=== PATIENT | female | born 1985 | race African-American/Black ===

== ENCOUNTER 2022-04-08 18:34 | Inpatient (IN) ==
[2022-04-08] MEDS ORDERED: OXYTOCIN 30 UNITS/500 ML BAG IV PRN ×3 (19:10→19:14)
--- NOTE | 2022-04-08 19:19 | History & Physical Report ---
Date of Service April 08, 2022 Assessment & Plan (1) 40 weeks gestation of : Plan: Admit, routine labs, epidural with patient request Start oxytocin for augmentation Anticipate spontaneous vaginal delivery (2) Meconium in amniotic fluid: Plan: Will update pediatrics (3) AMA (advanced maternal age) primigravida 35+: (4) Antepartum anemia complicating in third trimester: Plan: Admission CBC pending History of Present Illness Chief Complaint: ROM Primary Care Provider: NO PCP Patient is a 36-year-old G1, P0 at 40 weeks and 1 day dated by last menstrual period consistent with 13-week ultrasound who presents to labor and delivery for leaking of fluid approximately 6:30 PM along with irregular contractions. Notes she may have some bleeding with her spontaneous rupture of membranes. Notes good movement. Denies headache, blurry vision, right upper quadrant epigastric pain. Otherwise feeling well Complications this include advanced maternal age and antepartum anemia. Allergies Allergy/AdvReac Type Severity Reaction Status Date / Time No Known Allergies Allergy Unverified 02/20/22 14:15 Home Medications Medication Instructions Recorded Confirmed Type docusate sodium 100 mg capsule 100 mg PO DAILY 02/20/22 02/20/22 History iron,carbonyl 65 mg-vitamin C 125 1 tab PO DAILY 02/20/22 02/20/22 History mg tablet,delayed release (Vitron-C) vit no.95-ferrous 1 tab PO DAILY 02/20/22 02/20/22 History fumarate 28 mg-folic acid 800 mcg tablet () Patient History Medical History Third trimester Social History Smoking Status: Never smoker Feels Safe at Home: Yes OB History [employer] History See prenate Review of Systems All systems reviewed & are unremarkable except as noted in HPI & below Physical Exam Constitutional: WD/WN, vitals as above Respiratory: normal respiratory effort, lungs clear to auscultation Cardiovascular: RRR, no murmur, no edema Gastrointestinal (Abdomen): normal bowel sounds, soft, nontender, no hepatosplenomegaly Genitourinary: no vaginal lesions, no adnexal mass normal external appearance Sterile speculum exam: Noted meconium stained fluid Cervical exam: /-3, sutures fell Results & Data ([facility]) Vital Signs (Past 12 Hours) Vital Signs Temp Pulse Resp BP 04/08/22 18:39 36.9 C 82 20 129/75 Monitoring External Monitor heart tracing: Baseline 1 35-1 40, moderate variability, positive accelerations, no decelerations, category 1 tracing Tocodynamometer Irregular contractions between every 5 to 8 minutes
[2022-04-08] MEDS: LACTATED RINGER'S 1,000 ML IV PRN (20:13)
[2022-04-08 20:43] LABS: Hematocrit (blood only) 35.1 % (37-47); Hemoglobin 11.5 g/dL (12.0-16.0); Mean Corpuscular Volume 91.6 fL (80-100); Mean Platelet Volume 10.5 fL (7.4-10.4); Platelet Count 244 K/uL (130-400); RDW Coefficient of Variation 13.5 % (11.5-14.5); RDW Standard Deviation 45.2 fL (36.4-46.3); Red Blood Count 3.83 M/uL (4.2-5.4); White Blood Count 6.33 K/uL (4.8-10.8)
[2022-04-08 21:04] LABS: Mean Corpuscular Hgb Conc 32.8 g/dL (32-36)
[2022-04-08] MEDS ORDERED: ePHEDrine sulfate 50 MG/ML AMP ONE (21:31)
[2022-04-08] MEDS ORDERED: fentaNYL 2MCG/ML ROPIVACAINE 1.25MG/ML 100 ML BAG EPI ONE (21:32)
[2022-04-08] MEDS ORDERED: BUPIVACAINE 0.25% 30 ML VIAL ONE (21:32)
[2022-04-08] MEDS ORDERED: fentaNYL citrate 100 MCG/2 ML VIAL ONE (21:32)
[2022-04-08] MEDS ORDERED: SODIUM CHLORIDE 0.9% INJ 10 ML VIAL ONE (21:32)
--- NOTE | 2022-04-08 21:39 | Anesthesiology Consultation ---
Date of Service April 08, 2022 Assessment & Plan (1) Encounter for pre-operative examination: Chart Review Chart Review: Acceptable Risk for Labor Epidural History Height/Weight Height: 5 ft 7 in Weight: 86.183 kg Allergies Allergy/AdvReac Type Severity Reaction Status Date / Time No Known Allergies Allergy Unverified 02/20/22 14:15 Medications Home Medications Medication Instructions Recorded Confirmed Last Taken docusate sodium 100 mg capsule 100 mg PO DAILY 02/20/22 02/20/22 02/20/22 iron,carbonyl 65 mg-vitamin C 125 1 tab PO DAILY 02/20/22 02/20/22 02/20/22 mg tablet,delayed release (Vitron-C) vit no.95-ferrous 1 tab PO DAILY 02/20/22 02/20/22 02/20/22 fumarate 28 mg-folic acid 800 mcg tablet () Active Medications Generic Name Dose Route Start Last Admin Trade Name Freq PRN Reason Stop Dose Admin Lactated Ringer's 1,000 mls @ 125 mls/hr 04/08/22 19:10 04/08/22 20:47 Lr IV 04/10/22 19:09 125 mls/hr .Q8H PRN Infusion L&D Protocol Protocol Past Medical History Medical History Third trimester Social History Smoking Status: Never smoker Hx Alcohol Use: No Hx Substance Use: No Physical Exam Vital Signs Last Vital Signs Temp 36.9 C 04/08/22 19:03 Pulse 82 04/08/22 18:39 Resp 20 04/08/22 19:03 BP 129/75 04/08/22 18:39 Testing Laboratory Results 04/08/22 19:23 Blood Type A Positive 04/08/22 19:26 Antibody Screen NEGATIVE 04/08/22 19:26
[2022-04-08] MEDS ORDERED: ePHEDrine sulfate 50 MG/ML AMP IV PRN (22:03)
[2022-04-08] MEDS ORDERED: NALOXONE HCL 1 MG in SODIUM CHLORIDE 0.9% 1000ML 1,000 ML IV PRN (22:03)
[2022-04-08] MEDS ORDERED: NALOXONE HCL 0.4 MG/1 ML VIAL/CARP IV PRN (22:03)
[2022-04-08] MEDS ORDERED: ONDANSETRON INJ 2 MG/ML 2 ML VIAL IV PRN (22:03)
[2022-04-09] MEDS ORDERED: NURSING L&D Epidural Breakthrough Pain Update ONE (00:25)
[2022-04-09] MEDS: LACTATED RINGER'S 1,000 ML IV PRN ×4 (00:47→13:47)
[2022-04-09] MEDS ORDERED: BUPIVACAINE 0.25% 30 ML VIAL ONE (01:53)
--- NOTE | 2022-04-09 02:31 | Communication Note ---
Date of Service: April 09, 2022 pain rated 9/10. bolused 10ml 0.5% bup in divided doses on monitor. vss. pain improved and pt asleep
[2022-04-09] MEDS: fentaNYL 2MCG/ML ROPIVACAINE 1.25MG/ML 100 ML BAG EPI PRN ×2 (04:21→10:11)
--- NOTE | 2022-04-09 06:28 | Labor Progress Brief Note ---
Date of Service April 09, 2022 Subjective Patient resting comfortably with epidural. No issues overnight Assessment & Plan (1) 40 weeks gestation of : Plan: Continue oxytocin for augmentation Anticipate spontaneous vaginal delivery (2) Meconium in amniotic fluid: Plan: Will update pediatrics (3) AMA (advanced maternal age) primigravida 35+: (4) Antepartum anemia complicating in third trimester: Plan: H/H 11.5/35.1% Admission and Anticipated Discharge Date Admission Date: April 08, 2022 Physical Exam Genitourinary: FHT: baseline 135-140, mod variability, occasional decelerations, positive accelerations, category 1 to category 2 Tocometer: Q. 1 to 3 minutes oxytocin currently running Cervix: 7.5/100/0 checked by RN Results & Data ([facility]) Vital Signs (Past 12 Hours) Vital Signs Temp Pulse Resp BP Pulse Ox 04/09/22 06:23 102 H 97 04/09/22 06:18 90 96 04/09/22 06:13 88 96 04/09/22 06:12 88 129/69 04/09/22 06:08 93 H 97 04/09/22 06:03 88 97 04/09/22 05:58 104 H 97 04/09/22 05:56 92 H 128/71 04/09/22 05:53 97 H 97 04/09/22 05:48 100 H 97 04/09/22 05:43 90 97 04/09/22 05:41 91 H 124/69 04/09/22 05:38 103 H 97 04/09/22 05:33 87 96 04/09/22 05:28 90 97 04/09/22 05:27 85 126/68 04/09/22 05:23 84 96 04/09/22 05:18 94 H 97 04/09/22 05:13 85 97 04/09/22 05:11 88 124/69 04/09/22 05:10 36.8 C 16 04/09/22 05:08 85 96 04/09/22 05:03 81 96 04/09/22 04:58 96 H 96 04/09/22 04:56 82 122/69 04/09/22 04:53 85 97 04/09/22 04:48 96 H 97 04/09/22 04:43 91 H 97 04/09/22 04:41 84 120/69 04/09/22 04:38 81 97 04/09/22 04:33 99 H 95 04/09/22 04:28 88 96 04/09/22 04:26 89 122/73 04/09/22 04:23 79 96 04/09/22 04:18 81 96 04/09/22 04:13 80 96 04/09/22 04:12 90 122/68 04/09/22 04:08 87 96 04/09/22 04:03 90 95 04/09/22 03:58 91 H 97 04/09/22 03:56 88 121/67 04/09/22 03:53 85 97 04/09/22 03:48 78 97 04/09/22 03:43 82 97 04/09/22 03:41 77 121/65 04/09/22 03:38 81 97 04/09/22 03:33 85 97 04/09/22 03:28 90 97 04/09/22 03:26 85 119/68 04/09/22 03:23 88 97 04/09/22 03:18 91 H 97 04/09/22 03:15 36.9 C 04/09/22 03:13 82 97 04/09/22 03:11 85 117/68 04/09/22 03:08 94 H 97 04/09/22 03:03 91 H 96 04/09/22 02:58 72 96 04/09/22 02:56 96 H 114/66 04/09/22 02:53 75 96 04/09/22 02:48 79 97 04/09/22 02:43 85 97 04/09/22 02:41 73 112/63 04/09/22 02:38 74 97 04/09/22 02:33 93 H 97 04/09/22 02:28 84 97 04/09/22 02:26 86 109/65 04/09/22 02:23 73 97 04/09/22 02:18 82 96 04/09/22 02:13 83 98 04/09/22 02:08 86 118/69 100 04/09/22 02:05 79 119/69 04/09/22 02:03 84 100 04/09/22 02:02 85 115/68 04/09/22 01:59 92 H 117/66 04/09/22 01:58 95 H 127/78 89 L 04/09/22 01:53 86 100 04/09/22 01:48 97 H 100 04/09/22 01:44 95 H 90 04/09/22 01:43 92 H 118/72 100 04/09/22 01:28 91 H 117/66 04/09/22 01:13 88 126/59 L 04/09/22 01:02 89 100 04/09/22 00:58 112/63 04/09/22 00:57 89 100 04/09/22 00:53 91 H 90 04/09/22 00:52 91 H 100 04/09/22 00:47 89 99 04/09/22 00:46 83 119/60 04/09/22 00:33 85 89 L 04/09/22 00:31 76 99 04/09/22 00:28 74 129/71 04/09/22 00:26 86 99 04/09/22 00:21 76 100 04/09/22 00:16 87 96 04/09/22 00:15 36.9 C 04/09/22 00:13 76 134/71 04/09/22 00:11 80 98 04/09/22 00:10 84 90 04/09/22 00:06 74 99 04/09/22 00:01 80 100 04/08/22 23:58 79 127/68 04/08/22 23:56 82 100 04/08/22 23:51 90 99 04/08/22 23:46 75 100 04/08/22 23:43 81 126/69 04/08/22 23:41 84 98 04/08/22 23:36 85 99 04/08/22 23:31 79 100 04/08/22 23:28 82 117/67 04/08/22 23:26 78 100 04/08/22 23:21 79 98 04/08/22 23:16 82 98 04/08/22 23:13 76 120/60 04/08/22 23:11 81 99 04/08/22 23:06 87 99 04/08/22 23:01 88 99 04/08/22 22:58 91 H 121/63 04/08/22 22:56 78 100 04/08/22 22:51 86 99 04/08/22 22:46 81 99 04/08/22 22:43 82 121/58 L 04/08/22 22:41 81 99 04/08/22 22:36 80 100 04/08/22 22:31 92 H 99 04/08/22 22:29 82 121/55 L 04/08/22 22:26 83 100 04/08/22 22:21 84 99 04/08/22 22:16 85 99 04/08/22 22:12 86 116/58 L 04/08/22 22:11 87 100 04/08/22 22:10 94 H 117/60 04/08/22 22:08 87 118/61 04/08/22 22:06 37.1 C 89 18 119/64 100 04/08/22 22:04 82 120/64 04/08/22 22:01 94 H 97 04/08/22 21:58 81 123/72 04/08/22 21:56 82 100 04/08/22 21:55 82 130/71 04/08/22 21:52 105 H 135/83 04/08/22 21:51 102 H 100 04/08/22 21:49 93 H 131/79 04/08/22 21:46 88 128/75 100 04/08/22 19:03 36.9 C 20 04/08/22 18:39 36.9 C 82 20 129/75
[2022-04-09] MEDS ORDERED: LIDOCAINE 2%/EPINEPHRINE 1:200,000 20 ML SDV ONE (09:55)
[2022-04-09] MEDS ORDERED: ROPIVACAINE 0.5% 5 MG/ML 30 ML VIAL ONE (09:55)
--- NOTE | 2022-04-09 12:48 | Labor Progress Brief Note ---
Date of Service April 09, 2022 Subjective Patient resting comfortably with epidural. No current complaints at this time Assessment & Plan (1) 40 weeks gestation of : Plan: Continue oxytocin for augmentation Going to start pushing with nursing staff at this time Anticipate spontaneous vaginal delivery Maternal tachycardia, no maternal fever at this time, earlier had tachycardia. If meets criteria for chorio will start antibiotics (2) Meconium in amniotic fluid: Plan: Will update pediatrics (3) AMA (advanced maternal age) primigravida 35+: (4) Antepartum anemia complicating in third trimester: Plan: H/H 11.5/35.1% Admission and Anticipated Discharge Date Admission Date: April 08, 2022 Physical Exam Physical Exam: heart tracing: Baseline 160, minimal to moderate variability, early decelerations, positive accelerations, category 2 Tocometer: Contractions every 2 minutes Pitocin at 16 Cervix: 10/100/+1 checked by RN Results & Data ([facility]) Vital Signs (Past 12 Hours) Vital Signs Temp Pulse Resp BP Pulse Ox 04/09/22 12:43 111 H 100 04/09/22 12:41 114 H 125/67 04/09/22 12:38 113 H 100 04/09/22 12:33 113 H 100 04/09/22 12:28 103 H 100 04/09/22 12:27 121 H 140/61 04/09/22 12:23 115 H 100 04/09/22 12:19 107 H 91 04/09/22 12:18 103 H 100 04/09/22 12:13 106 H 100 04/09/22 12:12 113 H 125/68 04/09/22 12:08 111 H 100 04/09/22 12:03 131 H 100 04/09/22 11:58 110 H 98 04/09/22 11:57 111 H 20 126/62 04/09/22 11:53 118 H 100 04/09/22 11:48 149 H 99 04/09/22 11:47 125 H 92 04/09/22 11:43 140 H 100 04/09/22 11:42 129 H 126/57 L 04/09/22 11:38 112 H 100 04/09/22 11:33 118 H 100 04/09/22 11:28 99 H 100 04/09/22 11:26 96 H 20 119/66 04/09/22 11:23 95 H 100 04/09/22 11:18 91 H 100 04/09/22 11:13 110 H 100 04/09/22 11:12 37.5 C 88 20 123/68 04/09/22 11:08 100 H 100 04/09/22 11:03 93 H 100 04/09/22 10:58 91 H 100 04/09/22 10:56 87 20 128/69 04/09/22 10:53 90 100 04/09/22 10:48 92 H 100 04/09/22 10:43 88 100 04/09/22 10:41 90 20 123/65 04/09/22 10:38 85 100 04/09/22 10:33 92 H 100 04/09/22 10:28 103 H 100 04/09/22 10:26 98 H 18 124/62 04/09/22 10:23 91 H 100 04/09/22 10:18 104 H 98 04/09/22 10:17 99 H 91 04/09/22 10:13 97 H 96 04/09/22 10:11 94 H 121/67 04/09/22 10:10 97 H 93 04/09/22 10:08 95 H 100 04/09/22 10:05 98 H 128/75 04/09/22 10:03 112 H 100 04/09/22 09:58 89 100 04/09/22 09:56 101 H 18 121/65 04/09/22 09:53 96 H 100 04/09/22 09:48 94 H 100 04/09/22 09:43 96 H 100 04/09/22 09:41 99 H 20 117/65 04/09/22 09:38 98 H 100 04/09/22 09:33 103 H 100 04/09/22 09:28 37.4 C 20 100 04/09/22 09:26 37.4 C 101 H 20 111/58 L 04/09/22 09:23 97 H 95 04/09/22 09:18 96 H 100 04/09/22 09:13 94 H 100 04/09/22 09:11 90 18 126/69 04/09/22 09:08 94 H 100 04/09/22 09:03 95 H 100 04/09/22 08:58 91 H 100 07/03/22 08:57 88 122/68 07/03/22 08:53 93 H 100 04/09/22 08:48 90 100 04/09/22 08:43 87 100 04/09/22 08:41 84 18 127/64 04/09/22 08:38 87 100 04/09/22 08:33 94 H 100 04/09/22 08:28 88 99 04/09/22 08:26 100 H 129/66 04/09/22 08:23 87 99 04/09/22 08:18 86 99 04/09/22 08:14 99 H 94 04/09/22 08:13 90 100 04/09/22 08:11 87 128/74 04/09/22 08:08 88 99 04/09/22 08:03 90 98 04/09/22 07:58 87 98 04/09/22 07:56 89 20 126/69 04/09/22 07:53 87 98 04/09/22 07:48 83 98 04/09/22 07:43 94 H 98 04/09/22 07:41 87 130/75 04/09/22 07:38 95 H 100 04/09/22 07:33 94 H 99 04/09/22 07:28 88 98 04/09/22 07:26 96 H 126/70 04/09/22 07:23 88 99 04/09/22 07:18 95 H 97 04/09/22 07:13 96 H 96 04/09/22 07:11 100 H 128/67 04/09/22 07:08 89 96 04/09/22 07:03 91 H 96 04/09/22 07:00 36.7 C 20 04/09/22 06:58 97 H 96 04/09/22 06:57 93 H 130/74 04/09/22 06:53 104 H 96 04/09/22 06:48 96 H 96 04/09/22 06:43 105 H 96 04/09/22 06:41 90 128/70 04/09/22 06:38 97 H 96 04/09/22 06:33 97 H 97 04/09/22 06:28 94 H 96 04/09/22 06:26 96 H 129/67 04/09/22 06:23 102 H 97 04/09/22 06:18 90 96 04/09/22 06:13 88 96 04/09/22 06:12 88 129/69 04/09/22 06:08 93 H 97 04/09/22 06:03 88 97 04/09/22 05:58 104 H 97 04/09/22 05:56 92 H 128/71 04/09/22 05:53 97 H 97 04/09/22 05:48 100 H 97 04/09/22 05:43 90 97 04/09/22 05:41 91 H 124/69 04/09/22 05:38 103 H 97 04/09/22 05:33 87 96 04/09/22 05:28 90 97 04/09/22 05:27 85 126/68 04/09/22 05:23 84 96 04/09/22 05:18 94 H 97 04/09/22 05:13 85 97 04/09/22 05:11 88 124/69 04/09/22 05:10 36.8 C 16 04/09/22 05:08 85 96 04/09/22 05:03 81 96 04/09/22 04:58 96 H 96 04/09/22 04:56 82 122/69 04/09/22 04:53 85 97 04/09/22 04:48 96 H 97 04/09/22 04:43 91 H 97 04/09/22 04:41 84 120/69 04/09/22 04:38 81 97 04/09/22 04:33 99 H 95 04/09/22 04:28 88 96 04/09/22 04:26 89 122/73 04/09/22 04:23 79 96 04/09/22 04:18 81 96 04/09/22 04:13 80 96 04/09/22 04:12 90 122/68 04/09/22 04:08 87 96 04/09/22 04:03 90 95 04/09/22 03:58 91 H 97 04/09/22 03:56 88 121/67 04/09/22 03:53 85 97 04/09/22 03:48 78 97 04/09/22 03:43 82 97 04/09/22 03:41 77 121/65 04/09/22 03:38 81 97 04/09/22 03:33 85 97 04/09/22 03:28 90 97 04/09/22 03:26 85 119/68 04/09/22 03:23 88 97 04/09/22 03:18 91 H 97 04/09/22 03:15 36.9 C 04/09/22 03:13 82 97 04/09/22 03:11 85 117/68 04/09/22 03:08 94 H 97 04/09/22 03:03 91 H 96 04/09/22 02:58 72 96 04/09/22 02:56 96 H 114/66 04/09/22 02:53 75 96 04/09/22 02:48 79 97 04/09/22 02:43 85 97 04/09/22 02:41 73 112/63 04/09/22 02:38 74 97 04/09/22 02:33 93 H 97 04/09/22 02:28 84 97 04/09/22 02:26 86 109/65 04/09/22 02:23 73 97 04/09/22 02:18 82 96 04/09/22 02:13 83 98 04/09/22 02:08 86 118/69 100 04/09/22 02:05 79 119/69 04/09/22 02:03 84 100 04/09/22 02:02 85 115/68 04/09/22 01:59 92 H 117/66 04/09/22 01:58 95 H 127/78 89 L 04/09/22 01:53 86 100 04/09/22 01:48 97 H 100 04/09/22 01:44 95 H 90 04/09/22 01:43 92 H 118/72 100 04/09/22 01:28 91 H 117/66 04/09/22 01:13 88 126/59 L 04/09/22 01:02 89 100 04/09/22 00:58 112/63 04/09/22 00:57 89 100 04/09/22 00:53 91 H 90 04/09/22 00:52 91 H 100 04/09/22 00:47 89 99
[2022-04-09] MEDS ORDERED: GENTAMICIN CONSULT ACTIVE PRN (13:53)
[2022-04-09] MEDS ORDERED: GENTAMICIN SULFATE 440 MG in DEXTROSE 5% 100 ML IV ONE (14:00)
[2022-04-09] MEDS ORDERED: AMPICILLIN 2,000 MG in SODIUM CHLOR 0.9% AD-VAN 100 ML IV ONE (14:00)
[2022-04-09] MEDS ORDERED: DIPHTHERIA/TETANUS/PERTUSSIS 0.5 ML SYR/VIAL IM ONE (15:35)
[2022-04-09] MEDS ORDERED: bisacodyL 10 MG SUPP PR PRN (15:35)
[2022-04-09] MEDS ORDERED: HYDROCORTISONE ACETATE 25 MG SUPP PR PRN (15:35)
[2022-04-09] MEDS ORDERED: OXYTOCIN 30 UNITS/500 ML BAG IV PRN (15:35)
[2022-04-09] MEDS ORDERED: ACETAMINOPHEN 325 MG TAB PO PRN (15:35)
[2022-04-09] MEDS ORDERED: BENZOCAINE 20% AER SPR 82.5 GM CAN EXT PRN (15:35)
--- NOTE | 2022-04-09 15:37 | Delivery Summary ---
Vaginal Delivery Summary Date of Service April 09, 2022 Vaginal Delivery Summary Delivery Note History synopsis: Patient is a 36-year-old G1, P0 that was admitted at 40 weeks and 1 day, with spontaneous rupture of membranes, not an active labor. Noted meconium stained fluid. She was admitted prior to an epidural before starting oxytocin for augmentation. She was started on oxytocin, made good cervical change throughout the night and was found to be complete at 1233. Noted maternal and tachycardia as well as a setting of a maternal fever and received ampicillin and gentamicin for suspected chorioamnionitis. She pushed with nursing and I was called for delivery Delivery Summary: Patient was placed in the dorsal lithotomy position. She was prepped and draped in the usual sterile fashion. Upon maternal pushing the head was delivered atraumatically followed by the anterior shoulders, posterior shoulders then the remainder of the infants body. The infants mouth and nose were bulb suction below the level of the perineum. A male infant was delivered at 1509. Weight and scores currently pending. The umbilical cord was clamped times two and cut. The was handed off to the awaiting nursing staff. Cord blood gases were obtained. The placenta delivered intact with three vessel cord. . Placenta was sent to pathology. Thirty units of Pitocin were added to the IV fluid and allowed to run freely. Uterine massage was performed until uterus was deemed firm. Upon inspection of the perineum, vagina and cervix were intact. First degree laceration was noted which was repaired with 3-0 Vicryl in the usual fashion. Noted multiple areas were none hemostatic and were closed with 2-0 Vicryl and 3-0 Vicryl in a [id number] fashion to create hemostasis. Upon re-inspection the patient was hemostatic. Uterus again massaged and found to be firm. Needle and sponge counts were correct. Patient was stable and allowed to recover in L&D room. Infant was stable and remained in room with mother in the Family Care Unit.
[2022-04-09 15:45] LABS: Base Excess Cord Arterial Bld -5.2 mEq/L (-9-1.8); CO2 Cord Arterial Blood 51 mmHg (39.1-73.5); HCO3 Cord Arterial Blood 22 mmol/L (19.7-28.5); Oxygen Sat Cord Arterial Blood < 60.0 % (<60); PO2 Cord Arterial Blood 19 mmHg (4.1-31.7); pH Cord Arterial Blood 7.25 (7.1-7.38)
[2022-04-09] MEDS: IBUPROFEN 600 MG TAB PO PRN ×2 (15:53→20:18)
--- NOTE | 2022-04-09 16:10 | Anesthesia Procedure Note ---
Date of Service April 09, 2022 Anesthesia Post Epidural Note Vital Signs Vital Signs: Temp Pulse Resp BP Pulse Ox 37.5 C 93 H 20 150/72 H 49 L 04/09/22 15:13 04/09/22 15:56 04/09/22 16:00 04/09/22 15:56 04/09/22 15:11 Pain Intensity Lower Abdomen: Pain Intensity: 7 Notes Mental Status: alert / awake / arousable and participated in evaluation Nausea / Vomiting: adequately controlled Pain: adequately controlled Airway Patency, RR, SpO2: stable & adequate BP & HR: stable & adequate Hydration State: stable & adequate Neuraxial Anesthesia: was administered and sensory block is resolving Anesthetic Complications: no major complications apparent Epidural: Removed without complications and With tip intact
[2022-04-09] MEDS: DOCUSATE SODIUM 100 MG CAP PO SCH (20:18)
[2022-04-09] MEDS: AMPICILLIN 2,000 MG in SODIUM CHLOR 0.9% AD-VAN 100 ML IV SCH (20:53)
[2022-04-10] MEDS: AMPICILLIN 2,000 MG in SODIUM CHLOR 0.9% AD-VAN 100 ML IV SCH ×4 (02:43→20:23)
[2022-04-10 07:09] LABS: Hemoglobin 9.8 g/dL (12.0-16.0); Mean Corpuscular Hemoglobin 29.5 pg (25-34); Mean Corpuscular Hgb Conc 32.7 g/dL (32-36); Mean Corpuscular Volume 90.4 fL (80-100); Mean Platelet Volume 9.9 fL (7.4-10.4); Platelet Count 215 K/uL (130-400); RDW Coefficient of Variation 13.5 % (11.5-14.5); RDW Standard Deviation 44.7 fL (36.4-46.3); Red Blood Count 3.32 M/uL (4.2-5.4)
[2022-04-10] MEDS: PRENATAL VITAMIN 1 TAB PO SCH (08:04)
[2022-04-10] MEDS: DOCUSATE SODIUM 100 MG CAP PO SCH ×2 (08:04→20:20)
[2022-04-10] MEDS: IBUPROFEN 600 MG TAB PO PRN ×3 (08:04→20:22)
[2022-04-10] MEDS: FERROUS SULFATE 325 MG TAB PO SCH (08:04)
--- NOTE | 2022-04-10 09:05 | Obstetrical Progress Note ---
Date of Service April 10, 2022 Subjective Ambulation: ambulating normally Voiding: no voiding problems Passing Gas:: Yes Diet Tolerance:: regular diet Lochia:: Small Feeding Type:: breast feeding Current Pain Level(1-10): 0 doing well Review of Systems All systems reviewed & are unremarkable except as noted in HPI & below Physical Exam Constitutional WD/WN, vitals as above Gastrointestinal (Abdomen) Inspection/Auscultation: abdomen normal to inspection abdomen soft and non-tender fundus firm below U Musculoskeletal Extremities: extremities normal to inspection no edema neg Norbert's Results & Data ([facility]) Vital Signs (Past 12 Hours) Vital Signs Temp Pulse Resp BP Pulse Ox 04/10/22 03:29 36.4 C L 66 18 101/65 04/09/22 23:05 36.7 C 82 16 106/67 96 Laboratory Results Laboratory Results - last 72 hr 04/08/22 04/08/22 04/08/22 19:23 19:26 19:32 WBC 6.33 RBC 3.83 L Hgb 11.5 L Hct 35.1 L MCV 91.6 MCH 30.0 MCHC 32.8 RDW Std Deviation 45.2 RDW Coeff of Eliezer 13.5 Plt Count 244 MPV 10.5 H Cord ABG pH Cord ABG pCO2 Cord ABG pO2 Cord ABG HCO3 Cord ABG Base Excess Cord ABG O2 Sat Blood Gas Comments SARS-CoV-2, RNA, NAAT NEGATIVE Blood Type A Positive Antibody Screen NEGATIVE 04/09/22 04/10/22 15:09 06:49 WBC 16.80 H RBC 3.32 L Hgb 9.8 L Hct 30.0 L MCV 90.4 MCH 29.5 MCHC 32.7 RDW Std Deviation 44.7 RDW Coeff of Eliezer 13.5 Plt Count 215 MPV 9.9 Cord ABG pH 7.25 Cord ABG pCO2 51 Cord ABG pO2 19 Cord ABG HCO3 22 Cord ABG Base Excess -5.2 Cord ABG O2 Sat < 60.0 Blood Gas Comments WILCOX SARS-CoV-2, RNA, NAAT Blood Type Antibody Screen
[2022-04-10] MEDS ORDERED: bisacodyL 5 MG TABEC PO SCH (20:00)
[2022-04-11 06:51] LABS: Hematocrit (blood only) 29.1 % (37-47); Hemoglobin 9.4 g/dL (12.0-16.0)
[2022-04-11] MEDS: FERROUS SULFATE 325 MG TAB PO SCH (10:32)
[2022-04-11] MEDS: DOCUSATE SODIUM 100 MG CAP PO SCH (10:32)
[2022-04-11] MEDS: PRENATAL VITAMIN 1 TAB PO SCH (10:32)
[2022-04-11] MEDS: IBUPROFEN 600 MG TAB PO PRN (10:33)
--- NOTE | 2022-04-11 10:48 | Obstetrical Progress Note ---
Date of Service April 11, 2022 Assessment & Plan (1) Normal course: PPD #2 pt doing well d/c home with instructions Subjective Ambulation: ambulating normally Voiding: no voiding problems Passing Gas:: Yes Diet Tolerance:: regular diet Lochia:: Small Feeding Type:: breast feeding Review of Systems All systems reviewed & are unremarkable except as noted in HPI & below Physical Exam Constitutional WD/WN, vitals as above well developed and well nourished Eyes PERRL, conjunctivae normal, anicteric sclerae Neck trachea midline, no thyromegaly Respiratory normal respiratory effort, lungs clear to auscultation Auscultation: no crackles, no rales and no wheezes Cardiovascular RRR, no murmur, no edema Gastrointestinal (Abdomen) normal bowel sounds, soft, nontender, no hepatosplenomegaly Uterus is below umbilicus Musculoskeletal no cyanosis or clubbing, extremities motor strength 5/5 Skin no rashes, warm and dry Neurologic patellar DTR's 2+ bilat, sensation intact Psychiatric A+Ox3, euthymic affect Genitourinary normal external appearance Results & Data ([facility]) Vital Signs (Past 12 Hours) Vital Signs Temp Pulse Resp BP Pulse Ox 04/11/22 00:30 36.8 C 81 16 103/72 99
== END 2022-04-11 16:00 | disposition home or self-care (01) | DRG 805 ==
LOC: OPB 18:34 → 4S1 18:36 → 4E2 04-09 18:15
DX: Z3A.40 40 weeks gestation of pregnancy; O48.0 Post-term pregnancy; O76 Abnormality in fetal heart rate and rhythm complicating labor and delivery; O42.92 Full-term premature rupture of membranes, unspecified as to length of time between rupture and onset of labor; O77.0 Labor and delivery complicated by meconium in amniotic fluid; O41.1230 Chorioamnionitis, third trimester, not applicable or unspecified; O99.02 Anemia complicating childbirth; Z37.0 Single live birth; O70.0 First degree perineal laceration during delivery; D64.9 Anemia, unspecified

== ENCOUNTER 2023-04-06 10:07 | Inpatient (IN) ==
[2023-04-06] MEDS ORDERED: LIDOCAINE 1% LOCAL 20 ML VIAL INFIL PRN (10:33)
[2023-04-06] MEDS ORDERED: OXYTOCIN 30 UNITS/500 ML BAG IV PRN ×3 (10:33→23:49)
--- NOTE | 2023-04-06 10:48 | History & Physical Report ---
Date of Service April 06, 2023 Assessment & Plan (1) AMA (advanced maternal age) primigravida 35+: Plan: Admit in labor (2) with 39 completed weeks gestation: Admission and Anticipated Discharge Date Admission Date: April 06, 2023 History of Present Illness Chief Complaint: spontaneous ruptured membranes at term Primary Care Provider: EFFIE PCP 37 F P1001 at 39.2 weeks admitted with leakage of fluid since last PM clear. Mild contractions noted. GBS is negative Allergies Allergy/AdvReac Type Severity Reaction Status Date / Time No Known Allergies Allergy Unverified 02/20/22 14:15 Home Medications Medication Instructions Recorded Confirmed Type docusate sodium 100 mg capsule 100 mg PO DAILY 02/20/22 04/06/23 History iron,carbonyl 65 mg-vitamin C 125 1 tab PO DAILY 02/20/22 04/06/23 History mg tablet,delayed release (Vitron-C) vit no.95-ferrous 1 tab PO DAILY 02/20/22 04/06/23 History fumarate 28 mg-folic acid 800 mcg tablet () Patient History Medical History Third trimester Surgical History History of appendectomy Social History Smoking Status: Never smoker Hx Alcohol Use: No Hx Substance Use: No Preferred Language: [place]dean Communication Ability: Effective Nursing Information Systems Coordinator Required: No Beliefs That Will Affect Care: None marital status: Current Living Situation: Spouse Other Information That Helps Us Care for You: No Feels Safe at Home: Yes Safety Concerns: Feels Safe At This Time Assistive Devices: None 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 Review of Systems All systems reviewed & are unremarkable except as noted in HPI & below Physical Exam Constitutional: WD/WN, vitals as above Eyes: PERRL, conjunctivae normal, anicteric sclerae Respiratory: normal respiratory effort, lungs clear to auscultation Cardiovascular: RRR, no murmur, no edema Musculoskeletal: Extremities: extremities normal to inspection Skin: no rashes, warm and dry Neurologic: patellar DTR's 2+ bilat, sensation intact Psychiatric: A+Ox3, euthymic affect Genitourinary: no vaginal lesions, no adnexal mass Manual OB Exam: + cervical dilation 4 cm, + cervical effacement 70%, + station high and + amniotic fluid clear OB Exam Monitor Tracing: + external FHT monitor used, + external uterine monitor used, + category I and + normal FHT variability Results & Data Vital Signs (Past 12 Hours) Vital Signs Temp Pulse Resp BP 04/06/23 10:20 36.6 C 20 04/06/23 10:16 81 130/65 Code Status & VTE Plan VTE Prophylaxis Plan VTE Prophylaxis will be ordered: No Monitoring External Monitor Cat 1
[2023-04-06] MEDS: LACTATED RINGER'S 1,000 ML IV PRN ×2 (11:44→17:44)
[2023-04-06 11:46] LABS: Hematocrit (blood only) 35.2 % (37.0-47.0); Mean Corpuscular Hemoglobin 27.2 pg (25.0-34.0); Mean Corpuscular Hgb Conc 31.3 g/dL (32.0-36.0); Mean Corpuscular Volume 87.1 fL (80.0-100.0); Mean Platelet Volume 10.1 fL (9.4-12.4); Platelet Count 227 K/uL (130-400); RDW Coefficient of Variation 19.5 % (11.5-14.5); RDW Standard Deviation 61.7 fL (36.4-46.3); Red Blood Count 4.04 M/uL (4.20-5.40); White Blood Count 4.32 K/ul (4.8-10.8)
--- NOTE | 2023-04-06 14:13 | Labor Progress Brief Note ---
Date of Service April 06, 2023 Assessment & Plan Admission and Anticipated Discharge Date Admission Date: April 06, 2023 Physical Exam Genitourinary: Manual OB Exam: + cervical dilation 5 cm, + cervical effacement 70%, + station -2 and + amniotic fluid clear OB Exam Monitor Tracing: + external FHT monitor used, + external uterine monitor used, + category I and + normal FHT variability Results & Data Vital Signs (Past 12 Hours) Vital Signs Temp Pulse Resp BP 04/06/23 10:20 36.6 C 20 04/06/23 14:00 20 04/06/23 14:00 20 04/06/23 13:11 85 04/06/23 13:11 122/71 04/06/23 13:00 20 04/06/23 13:00 20 04/06/23 12:00 18 04/06/23 12:00 18 04/06/23 12:30 18 04/06/23 12:30 37.0 C 18 04/06/23 12:30 18 04/06/23 12:30 37.0 C 18 04/06/23 12:32 91 H 04/06/23 12:32 117/72 04/06/23 11:24 20 04/06/23 11:24 20 04/06/23 10:30 16 04/06/23 10:30 16 04/06/23 11:00 18 04/06/23 11:00 18 04/06/23 10:16 81 130/65
[2023-04-06] MEDS ORDERED: fentaNYL citrate PF 100 MCG/2 ML VIAL ONE (17:30)
[2023-04-06] MEDS ORDERED: SODIUM CHLORIDE 0.9% PF INJ 10 ML VIAL ONE (17:31)
[2023-04-06] MEDS ORDERED: fentaNYL 2MCG/ML ROPIVACAINE 1.25MG/ML 100 ML BAG EPI ONE (17:31)
[2023-04-06] MEDS ORDERED: ePHEDrine sulfate 50 MG/ML AMP ONE (17:31)
[2023-04-06] MEDS ORDERED: BUPIVACAINE 0.25% PF 30 ML VIAL ONE (17:31)
[2023-04-06] MEDS ORDERED: LIDOCAINE 2%/EPINEPHRINE 1:200,000 20 ML PF ONE (17:31)
[2023-04-06] MEDS ORDERED: BUPIVACAINE 0.25% PF 30 ML VIAL EPI PRN (17:58)
[2023-04-06] MEDS ORDERED: NALBUPHINE HCL INJ 10 MG/ML AMP IV PRN (17:58)
[2023-04-06] MEDS ORDERED: SODIUM CHLORIDE 0.9% PF INJ 10 ML VIAL EPI PRN (17:58)
[2023-04-06] MEDS ORDERED: fentaNYL citrate PF 100 MCG/2 ML VIAL EPI STA (17:58)
[2023-04-06] MEDS ORDERED: LIDOCAINE 2% MPF LOCAL 5 ML VIAL EPI PRN (17:58)
[2023-04-06] MEDS ORDERED: diphenhydrAMINE 50 MG/ML VIAL IV PRN (17:58)
[2023-04-06] MEDS ORDERED: SODIUM CHLORIDE 0.9% PF INJ 10 ML VIAL EPI STA (17:58)
[2023-04-06] MEDS ORDERED: LIDOCAINE 2%/EPINEPHRINE 1:200,000 20 ML PF EPI STA (17:58)
[2023-04-06] MEDS ORDERED: BUPIVACAINE 0.25% PF 30 ML VIAL EPI STA (17:58)
[2023-04-06] MEDS ORDERED: fentaNYL 2MCG/ML ROPIVACAINE 1.25MG/ML 100 ML BAG EPI PRN (17:58)
[2023-04-06] MEDS ORDERED: ePHEDrine sulfate 50 MG/ML AMP IV PRN (17:58)
[2023-04-06] MEDS ORDERED: NALOXONE HCL 0.4 MG/1 ML VIAL/CARP IV PRN (17:58)
[2023-04-06] MEDS ORDERED: NALOXONE HCL 1 MG in SODIUM CHLORIDE 0.9% 1000ML 1,000 ML IV PRN (17:58)
[2023-04-06] MEDS ORDERED: fentaNYL citrate PF 100 MCG/2 ML VIAL EPI PRN (17:58)
[2023-04-06] MEDS ORDERED: ROPIVACAINE 0.5% PF 5 MG/ML 20 ML VIAL EPI PRN (17:58)
--- NOTE | 2023-04-06 18:00 | Anesthesiology Consultation ---
Date of Service April 06, 2023 Assessment & Plan (1) Encounter for pre-operative examination: Chart Review Chart Review: Patient NOT seen in Pre Admission Testing and Acceptable Risk for Labor Epidural Consults Requested none History Height/Weight Height: 5 ft 7 in Weight: 85.275 kg Allergies Allergy/AdvReac Type Severity Reaction Status Date / Time No Known Allergies Allergy Unverified 02/20/22 14:15 Medications Home Medications Medication Instructions Recorded Confirmed Last Taken docusate sodium 100 mg capsule 100 mg PO DAILY 02/20/22 04/06/23 02/20/22 iron,carbonyl 65 mg-vitamin C 125 1 tab PO DAILY 02/20/22 04/06/23 04/05/23 mg tablet,delayed release (Vitron-C) vit no.95-ferrous 1 tab PO DAILY 02/20/22 04/06/23 04/05/23 fumarate 28 mg-folic acid 800 mcg tablet () Active Medications Generic Name Dose Route Start Last Admin Trade Name Freq PRN Reason Stop Dose Admin Lactated Ringer's 1,000 mls @ 125 mls/hr 04/06/23 10:33 04/06/23 18:08 Lr IV 04/08/23 10:32 125 mls/hr .Q8H PRN Infusion L&D Protocol Protocol Oxytocin 30 units in 500 mls @ 7 mls/hr 04/06/23 10:43 04/06/23 16:22 Pitocin IV 04/08/23 10:42 0.42 units/hr .Q24H PRN 7 mls/hr Labor Induction/Augmentation Titration Protocol 0.42 UNITS/HR Past Medical History Medical History Third trimester Exercise / Class Metabolic Activity II 4-5 Yardwork/Stairs/Walk up hill Past Surgical History Surgical History History of appendectomy Past Anesthesia History No Hx of Anesthesia Complications and No Family Hx of Anesthesia Complications Social History Smoking Status: Never smoker Hx Alcohol Use: No Hx Substance Use: No substance use type: does not use Physical Exam Vital Signs Last Vital Signs Temp 36.7 C 04/06/23 17:30 Pulse 82 04/06/23 18:15 Resp 20 04/06/23 17:30 BP 131/69 04/06/23 18:15 Pulse Ox 100 04/06/23 18:12 Testing Laboratory Results 04/06/23 11:01
--- NOTE | 2023-04-06 18:44 | Labor Progress Brief Note ---
Date of Service April 06, 2023 Assessment & Plan Admission and Anticipated Discharge Date Admission Date: April 06, 2023 Physical Exam Genitourinary: Manual OB Exam: + cervical dilation 6 cm, + cervical effacement 80%, + station -2 and + amniotic fluid clear OB Exam Monitor Tracing: + external FHT monitor used, + external uterine monitor used, + category I and + normal FHT variability AROM with Amni-hook clear fluid Results & Data Vital Signs (Past 12 Hours) Vital Signs Temp Pulse Resp BP Pulse Ox 04/06/23 10:20 36.6 C 20 04/06/23 18:37 100 04/06/23 18:37 89 04/06/23 18:35 83 04/06/23 18:35 115/66 04/06/23 18:33 98 H 04/06/23 18:33 120/69 04/06/23 18:32 100 04/06/23 18:32 95 H 04/06/23 18:31 83 04/06/23 18:31 118/73 04/06/23 18:29 87 04/06/23 18:29 121/74 04/06/23 18:27 100 04/06/23 18:27 96 H 04/06/23 18:25 18 04/06/23 18:25 18 04/06/23 18:27 92 H 04/06/23 18:27 117/72 04/06/23 18:25 83 04/06/23 18:25 117/64 04/06/23 18:22 100 04/06/23 18:22 89 04/06/23 18:23 96 H 04/06/23 18:23 117/72 04/06/23 18:21 90 04/06/23 18:21 120/72 04/06/23 18:19 96 H 04/06/23 18:19 128/62 04/06/23 18:17 100 04/06/23 18:17 89 04/06/23 18:17 123/63 04/06/23 18:15 82 04/06/23 18:15 131/69 04/06/23 18:14 82 04/06/23 18:14 125/64 04/06/23 18:12 100 04/06/23 18:12 89 04/06/23 18:09 87 04/06/23 18:09 125/71 06/30/23 18:07 100 04/06/23 18:07 90 04/06/23 18:07 119/68 04/06/23 17:30 20 04/06/23 17:30 36.7 C 20 04/06/23 17:00 18 04/06/23 17:00 36.7 C 18 04/06/23 17:08 86 04/06/23 17:08 134/77 04/06/23 16:30 18 04/06/23 16:30 18 04/06/23 15:30 18 04/06/23 15:30 18 04/06/23 15:27 81 04/06/23 15:27 126/68 04/06/23 14:30 20 04/06/23 14:30 36.7 C 20 04/06/23 14:13 78 04/06/23 14:13 121/78 04/06/23 14:00 20 04/06/23 14:00 20 04/06/23 13:11 85 04/06/23 13:11 122/71 04/06/23 13:00 20 04/06/23 13:00 20 04/06/23 12:00 18 04/06/23 12:00 18 04/06/23 12:30 18 04/06/23 12:30 37.0 C 18 04/06/23 12:30 18 04/06/23 12:30 37.0 C 18 04/06/23 12:32 91 H 04/06/23 12:32 117/72 04/06/23 11:24 20 04/06/23 11:24 20 04/06/23 10:30 16 04/06/23 10:30 16 04/06/23 11:00 18 04/06/23 11:00 18 04/06/23 10:16 81 130/65
--- NOTE | 2023-04-06 20:20 | Communication Note ---
Date of Service: April 06, 2023 Patient had water broken and contraction pains increased dramatically. Bolused a total of 8ml of 2% lido with epi in divided doses with minimal pain relief ( epidural appeared somewhat one sided as her left leg was very numb/heavy and her right leg was not nearly as numb/heavy. Difficult to discern sensory change levels to ice given patient was too uncomfortable. Decided to remove epidural and replace one level above. This was done in a sterile manner and epidural placed l3-l4 on first attempt after prep/drape/skin local. BURT 6cm, cath thread to 12cm at skin. test dose negative. bolused 6ml of 0.25% bupivicaine in divided doses. vss. much better pain relief. epidural infusion restarted.
[2023-04-06] MEDS ORDERED: DIPHTHERIA/TETANUS/PERTUSSIS Vaccine (Tdap, Age 7+yrs) 0.5mL SYR/VL IM ONE (23:49)
[2023-04-06] MEDS ORDERED: BENZOCAINE 20% AER SPR 82.5 GM CAN EXT PRN (23:49)
[2023-04-06] MEDS ORDERED: bisacodyL 10 MG SUPP PR PRN (23:49)
[2023-04-06] MEDS ORDERED: ACETAMINOPHEN 325 MG TAB PO PRN (23:49)
[2023-04-06] MEDS ORDERED: HYDROCORTISONE ACETATE 25 MG SUPP PR PRN (23:49)
--- NOTE | 2023-04-06 23:49 | Delivery Summary ---
Vaginal Delivery Summary Date of Service April 06, 2023 Vaginal Delivery Summary Delivery Note live female FANTA with delayed cord clamping and Apgars 7/8 weight pending. Cord blood obtained followed by spontaneous delivery of intact placenta. No tears. EBL 100 ml. Final sponge and instrument counts are correct. Mom and baby stable.
[2023-04-07] MEDS ORDERED: IBUPROFEN 600 MG TAB PO ONE (00:01)
--- NOTE | 2023-04-07 00:56 | Anesthesia Procedure Note ---
Date of Service April 07, 2023 Anesthesia Post Epidural Note Vital Signs Vital Signs: Temp Pulse Resp BP Pulse Ox 37.1 C 92 H 20 149/66 H 100 04/06/23 21:38 04/07/23 00:52 04/06/23 19:00 04/07/23 00:38 04/07/23 00:52 Pain Intensity Lower Abdomen: Pain Intensity: 10 Notes Mental Status: alert / awake / arousable and participated in evaluation Patient Amnestic to Procedure: No Nausea / Vomiting: adequately controlled Pain: adequately controlled Airway Patency, RR, SpO2: stable & adequate BP & HR: stable & adequate Hydration State: stable & adequate Neuraxial Anesthesia: was administered and sensory block is resolving Anesthetic Complications: no major complications apparent and Pt Satisfied with anesthetic care Epidural: Removed without complications and With tip intact
[2023-04-07 07:15] LABS: Hematocrit (blood only) 33.5 % (37.0-47.0); Hemoglobin 10.4 g/dl (12.0-16.0); Mean Corpuscular Hemoglobin 27.2 pg (25.0-34.0); Mean Corpuscular Volume 87.7 fL (80.0-100.0); Mean Platelet Volume 10.2 fL (9.4-12.4); Platelet Count 216 K/uL (130-400); RDW Coefficient of Variation 19.2 % (11.5-14.5); RDW Standard Deviation 61.5 fL (36.4-46.3); Red Blood Count 3.82 M/uL (4.20-5.40); White Blood Count 11.35 K/ul (4.8-10.8)
[2023-04-07] MEDS: PRENATAL VITAMIN 1 TAB PO SCH (08:01)
[2023-04-07] MEDS: DOCUSATE SODIUM 100 MG CAP PO SCH (08:01)
[2023-04-07] MEDS ORDERED: NON-FORMULARY MEDICATION (Iron,Carbonyl-Vitamin C [Vitron-C] 65 mg iron- 125 mg Tablet,Del PO SCH (09:00)
[2023-04-07] MEDS ORDERED: DOCUSATE SODIUM 100 MG CAP PO SCH (09:00)
[2023-04-07] MEDS ORDERED: NON-FORMULARY MEDICATION (Pnv Cmb#95-Ferrous Fumarate-Fa [Prenatal] 28 mg iron- 800 mcg Ta PO SCH (09:00)
--- NOTE | 2023-04-07 09:30 | Obstetrical Progress Note ---
Date of Service April 07, 2023 Assessment & Plan (1) Normal course: Plan Pt doing well No complaints anticipate dich tomorrow Subjective Ambulation: ambulating normally Voiding: no voiding problems Passing Gas:: Yes Diet Tolerance:: regular diet Lochia:: Small Feeding Type:: breast feeding Review of Systems All systems reviewed & are unremarkable except as noted in HPI & below Physical Exam Constitutional WD/WN, vitals as above well developed and well nourished Eyes PERRL, conjunctivae normal, anicteric sclerae Neck trachea midline, no thyromegaly Respiratory normal respiratory effort, lungs clear to auscultation Auscultation: no crackles, no rales and no wheezes Cardiovascular RRR, no murmur, no edema Gastrointestinal (Abdomen) normal bowel sounds, soft, nontender, no hepatosplenomegaly Uterus is below umbilicus Musculoskeletal no cyanosis or clubbing, extremities motor strength 5/5 Skin no rashes, warm and dry Neurologic patellar DTR's 2+ bilat, sensation intact Psychiatric A+Ox3, euthymic affect Genitourinary normal external appearance Results & Data Vital Signs (Past 12 Hours) Vital Signs Temp Pulse Pulse Resp BP BP Pulse Ox 04/07/23 07:55 36.8 C 73 16 115/73 100 04/07/23 03:00 36.9 C 92 H 18 125/74 99 04/07/23 01:47 108 H 100 04/07/23 01:43 109 H 130/69 04/07/23 01:42 111 H 99 04/07/23 01:37 100 H 100 04/07/23 01:32 103 H 100 04/07/23 01:27 92 H 100 04/07/23 01:22 92 H 100 04/07/23 01:17 96 H 100 04/07/23 01:12 105 H 100 04/07/23 01:13 101 H 124/72 04/07/23 01:10 97 H 91 04/07/23 01:07 96 H 100 04/07/23 01:02 93 H 100 04/07/23 00:57 92 H 98 04/07/23 00:52 92 H 100 04/07/23 00:47 100 H 100 04/07/23 00:42 103 H 100 04/07/23 00:37 102 H 100 04/07/23 00:38 104 H 149/66 H 04/07/23 00:32 110 H 100 04/07/23 00:27 105 H 100 04/07/23 00:23 104 H 126/61 04/07/23 00:22 104 H 100 04/07/23 00:17 111 H 99 04/07/23 00:12 111 H 100 04/07/23 00:07 116 H 100 04/07/23 00:08 114 H 121/59 L 04/07/23 00:02 115 H 100 04/06/23 23:57 100 04/06/23 23:57 115 H 04/06/23 23:53 112 H 04/06/23 23:53 127/67 04/06/23 23:52 100 04/06/23 23:52 108 H 04/06/23 23:47 100 04/06/23 23:47 119 H 04/06/23 23:42 100 04/06/23 23:42 125 H 04/06/23 23:37 100 04/06/23 23:37 129 H 04/06/23 23:37 113/49 L 04/06/23 23:32 59 L 04/06/23 23:32 133 H 04/06/23 23:27 100 04/06/23 23:27 164 H 04/06/23 23:22 100 04/06/23 23:22 129 H 04/06/23 23:17 100 04/06/23 23:17 126 H 04/06/23 23:12 100 04/06/23 23:12 123 H 04/06/23 23:07 100 04/06/23 23:07 108 H 04/06/23 23:08 106 H 04/06/23 23:08 131/80 04/06/23 23:02 100 04/06/23 23:02 115 H 04/06/23 22:57 100 04/06/23 22:57 110 H 04/06/23 22:53 125 H 04/06/23 22:53 124/76 04/06/23 22:52 100 04/06/23 22:52 104 H 04/06/23 22:47 100 04/06/23 22:47 107 H 04/06/23 22:42 100 04/06/23 22:42 117 H 04/06/23 22:37 100 04/06/23 22:37 105 H 04/06/23 22:38 109 H 04/06/23 22:38 132/83 04/06/23 22:32 100 04/06/23 22:32 113 H 04/06/23 22:27 100 04/06/23 22:27 107 H 04/06/23 22:23 97 H 04/06/23 22:23 127/74 04/06/23 22:22 100 04/06/23 22:22 100 H 04/06/23 22:17 100 04/06/23 22:17 112 H 04/06/23 22:12 100 04/06/23 22:12 109 H 04/06/23 22:07 100 04/06/23 22:07 99 H 04/06/23 22:08 96 H 04/06/23 22:08 131/79 04/06/23 22:02 100 04/06/23 22:02 107 H 04/06/23 21:57 100 04/06/23 21:57 103 H 04/06/23 21:55 112 H 04/06/23 21:55 122/72 04/06/23 21:52 100 04/06/23 21:52 96 H 04/06/23 21:47 100 04/06/23 21:47 120 H 04/06/23 21:42 100 04/06/23 21:42 119 H 04/06/23 21:38 37.1 C 04/06/23 21:37 100 04/06/23 21:37 109 H 04/06/23 21:38 111 H 04/06/23 21:38 118/68 04/06/23 21:32 100 04/06/23 21:32 115 H O2 Del Method 04/07/23 07:55 Room Air 04/07/23 03:00 Room Air 04/07/23 01:47 04/07/23 01:43 04/07/23 01:42 04/07/23 01:37 04/07/23 01:32 04/07/23 01:27 04/07/23 01:22 04/07/23 01:17 04/07/23 01:12 04/07/23 01:13 04/07/23 01:10 04/07/23 01:07 04/07/23 01:02 04/07/23 00:57 04/07/23 00:52 04/07/23 00:47 04/07/23 00:42 04/07/23 00:37 04/07/23 00:38 04/07/23 00:32 04/07/23 00:27 04/07/23 00:23 04/07/23 00:22 04/07/23 00:17 04/07/23 00:12 04/07/23 00:07 04/07/23 00:08 04/07/23 00:02 04/06/23 23:57 04/06/23 23:57 04/06/23 23:53 04/06/23 23:53 04/06/23 23:52 04/06/23 23:52 04/06/23 23:47 04/06/23 23:47 04/06/23 23:42 04/06/23 23:42 04/06/23 23:37 04/06/23 23:37 04/06/23 23:37 04/06/23 23:32 04/06/23 23:32 04/06/23 23:27 04/06/23 23:27 04/06/23 23:22 04/06/23 23:22 04/06/23 23:17 04/06/23 23:17 04/06/23 23:12 04/06/23 23:12 04/06/23 23:07 04/06/23 23:07 04/06/23 23:08 04/06/23 23:08 04/06/23 23:02 04/06/23 23:02 04/06/23 22:57 04/06/23 22:57 04/06/23 22:53 04/06/23 22:53 04/06/23 22:52 04/06/23 22:52 04/06/23 22:47 04/06/23 22:47 04/06/23 22:42 04/06/23 22:42 04/06/23 22:37 04/06/23 22:37 04/06/23 22:38 04/06/23 22:38 04/06/23 22:32 04/06/23 22:32 04/06/23 22:27 04/06/23 22:27 04/06/23 22:23 04/06/23 22:23 04/06/23 22:22 04/06/23 22:22 04/06/23 22:17 04/06/23 22:17 04/06/23 22:12 04/06/23 22:12 04/06/23 22:07 04/06/23 22:07 04/06/23 22:08 04/06/23 22:08 04/06/23 22:02 04/06/23 22:02 04/06/23 21:57 04/06/23 21:57 04/06/23 21:55 04/06/23 21:55 04/06/23 21:52 04/06/23 21:52 04/06/23 21:47 04/06/23 21:47 04/06/23 21:42 04/06/23 21:42 04/06/23 21:38 04/06/23 21:37 04/06/23 21:37 04/06/23 21:38 04/06/23 21:38 04/06/23 21:32 04/06/23 21:32
[2023-04-07] MEDS: IBUPROFEN 600 MG TAB PO PRN (16:44)
[2023-04-07] MEDS ORDERED: bisacodyL 5 MG TABEC PO SCH (20:00)
[2023-04-08] MEDS: DOCUSATE SODIUM 100 MG CAP PO SCH ×2 (00:17→08:09)
[2023-04-08] MEDS: IBUPROFEN 600 MG TAB PO PRN (00:17)
[2023-04-08 07:17] LABS: Hematocrit (blood only) 33.7 % (37.0-47.0); Hemoglobin 10.2 g/dl (12.0-16.0)
[2023-04-08] MEDS: PRENATAL VITAMIN 1 TAB PO SCH (08:09)
--- NOTE | 2023-04-08 10:08 | Obstetrical Progress Note ---
Date of Service April 08, 2023 Assessment & Plan (1) Normal course: Pt doing well no complaints disch home with instructions Results & Data Vital Signs (Past 12 Hours) Vital Signs Temp Pulse Resp BP Pulse Ox O2 Del Method 04/08/23 07:19 36.8 C 71 16 118/73 Room Air 04/07/23 23:04 36.7 C 77 18 120/76 99 Room Air
== END 2023-04-08 14:15 | disposition home or self-care (01) | DRG 807 ==
LOC: OPB 10:07 → 4S1 10:08 → 4E2 04-07 04:27

== ENCOUNTER 2025-09-16 21:35 | Observation (INO) ==
[2025-09-16 21:46] VITALS: RESP 18
[2025-09-16] MEDS ORDERED: ACETAMINOPHEN 325 MG TAB PO PRN (21:52)
[2025-09-16] MEDS ORDERED: CALCIUM CARBONATE 500 MG CHEWABLE TAB PO PRN ×2 (21:52→22:49)
[2025-09-16 22:42] VITALS: O2SAT 100
[2025-09-16] MEDS ORDERED: OXYTOCIN 30 UNITS/NSS 30 UNITS/500 ML BAG IV PRN (22:49)
[2025-09-16] MEDS ORDERED: LIDOCAINE 1% LOCAL 20 ML VIAL INFIL PRN (22:49)
[2025-09-16] MEDS ORDERED: ACETAMINOPHEN 500 MG TAB PO PRN (22:49)
--- NOTE | 2025-09-16 23:04 | History & Physical Report ---
Date of Service September 16, 2025 Assessment & Plan (1) 38 weeks gestation of : Plan: 40-year-old -0-0-2 at 38 weeks of gestation presenting with uterine contractions and cervical change, early labor also complaining of intermittent headaches and dizziness with ambulation often prolonged sitting or laying down, Vital signs stable afebrile, pulse ox 100% on room air, S1-S2 RRR, Most likely dehydration from laboring at home without p.o. intake, Plan to admit, monitor, IV fluid hydration, labs, Tylenol for headache, Discussed options of ambulation after IV fluid hydration and observation for headaches and dizziness versus received epidural for pain and rest overnight and augment contractions with oxytocin as needed, patient wants to decide after IV fluid hydration see how she feels Continue to monitor closely, All questions were answered (2) AMA (advanced maternal age) primigravida 35+: (3) Uterine contractions at greater than 20 weeks of gestation: (4) headache in third trimester: History of Present Illness Primary Care Provider: NO PCP Patient is a 40-year-old -0-0-2 at 38 weeks who has been feeling contractions since this morning, they were irregular until tonight when they become more regular and painful. She rates the pain 8 out of 10. She denies leakage of fluid or vaginal bleeding. She reports good movements. She also has had dizziness with headache this morning, when she took Tylenol and hydrate herself and slept and woke up and she was fine in the afternoon. She states headache started again with the contractions tonight it is better than this morning but she can still feel it. She feels dizzy if she gets up from bed quickly and then it gets better. She is able to walk up to the bathroom and come back without dizziness. She denies chest pain, shortness of breath, fever or chills, change in her vision, epigastric or right upper quadrant pain. She reports good movements. Her has been uncomplicated except AMA. GBS negative. Allergies Allergy/AdvReac Type Severity Reaction Status Date / Time No Known Allergies Allergy Unverified 02/20/22 14:15 Home Medications Medication Instructions Recorded Confirmed Type vit no.95-ferrous 1 tab PO DAILY 02/20/22 09/16/25 History fumarate 28 mg-folic acid 800 mcg tablet () Patient History Medical History Third trimester Surgical History History of appendectomy Social History Smoking Status: Never smoker Hx Alcohol Use: No Hx Substance Use: No Preferred Language: Bolivian Communication Ability: Effective Visual Impairment: No Limitations Rn Integrated Required: No Beliefs That Will Affect Care: None marital status: marital status details: Basil Diamond (She[place]) [phone] Current Living Situation: Spouse and Family Current Living Situation Comment: 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 Review of Systems as per Subjective / HPI Physical Exam Constitutional: WD/WN, vitals as above well developed, well nourished and + acute distress ( with contraction) Respiratory: normal respiratory effort, lungs clear to auscultation Auscultation: lungs clear to auscultation bilaterally Cardiovascular: RRR, no murmur, no edema Rate/Rhythm: regular rate and regular rhythm Heart Sounds: normal S1 and normal S2 Gastrointestinal (Abdomen): normal bowel sounds, soft, nontender, no hepatosplenomegaly Genitourinary: normal external appearance OB Exam Abdomen: + vertex ( confirmed with bedside ultrasound) Manual OB Exam: + cervical dilation 3 cm (3-4 cm), + cervical effacement 40% and + station high ( posterior) OB Exam Monitor Tracing: + external FHT monitor used, + external uterine monitor used and + category I Results & Data Vital Signs (Past 12 Hours) Vital Signs Temp Pulse Resp BP Pulse Ox 09/16/25 22:50 100 09/16/25 22:50 92 H 09/16/25 22:45 100 09/16/25 22:45 100 H 09/16/25 22:40 100 09/16/25 22:40 95 H 09/16/25 22:35 99 09/16/25 22:35 94 H 09/16/25 22:30 98 09/16/25 22:30 92 H 09/16/25 22:30 123/76 09/16/25 21:58 37 C 97 H 18 131/75 09/16/25 21:43 97 H 131/75 09/16/25 21:40 18 09/16/25 21:40 37.0 C 18 (2) AMA (advanced maternal age) primigravida 35+ Trimester: third trimester Qualified Code(s): O09.513 - Supervision of elderly primigravida, third trimester
[2025-09-16 23:32] LABS: Hematocrit (blood only) 32.0 % (37.0-47.0); Hemoglobin 10.1 g/dL (12.0-16.0); Mean Corpuscular Hemoglobin 28.4 pg (25.0-34.0); Mean Corpuscular Volume 89.9 fL (80.0-100.0); Platelet Count 279 K/uL (130-400); RDW Standard Deviation 45.2 fL (36.4-46.3); Red Blood Count 3.56 M/uL (4.20-5.40); White Blood Count 6.55 K/ul (4.8-10.8)
[2025-09-16 23:50] LABS: Alanine Aminotransferase 10.0 U/L (7-52); Albumin Globulin Ratio 0.9 (0.9-2); Albumin Level 3.5 gm/dl (3.4-5.0); Alkaline Phosphatase 119.0 U/L (34-104); Anion Gap 7.0 (3-11); Bilirubin,Total 0.9 mg/dl (0.2-1.0); Blood Urea Nitrogen 7.0 mg/dl (6-23); Calcium 8.9 mg/dl (8.6-10.3); Carbon Dioxide 23.0 mmol/L (21-32); Chloride 105.0 mmol/L (98-107); Creatinine Clr Calc Pharmacy 135.0 ml/min; Globulin 3.9 gm/dl (2.5-4.0); Glucose 80.0 mg/dl (70-99(Fasting)); Potassium 4.1 mmol/L (3.5-5.1); Sodium 135.0 mmol/L (136-145); Total Protein 7.4 gm/dl (6.0-8.3)
[2025-09-17] MEDS: LACTATED RINGER'S 1,000 ML IV PRN (00:03)
[2025-09-17 04:10] LABS: Appearance Urine Clear (Clear); Bacteria Urine Automated None Seen (None Seen); Cast Urine Automated 0-2 /lpf (0-2); Epithelial Cell Urine Auto 0-2 /hpf (0-2); Glucose Urine UA Negative (Negative); WBC Urine Automated 0-5 /hpf (0-5)
[2025-09-17] MEDS ORDERED: ACETAMINOPHEN 1,000 MG/100 ML VIAL IV PRN (05:24)
--- NOTE | 2025-09-17 05:28 | Obstetrical Progress Note ---
Date of Service September 17, 2025 Assessment & Plan Admission and Anticipated Discharge Date Admission Date: September 16, 2025 Subjective Patient is reevaluated. She felt better after IV fluid hydration, headache has gone and no more dizziness or lightheadedness. She has been up to the bathroom in times. She has not fallen in the hallways and wanted to rest. She slept most of the night and woke up with some of the contractions. She states contractions spaced out and they are now manageable, pain level is 5-6 out of 10 it was 8 when she first came. Vital signs stable afebrile, labs normal including normal platelets, creatinine, LFTs, urine has ketones. heart rate category 1, Contractions every 2 to 8 minutes, Vaginal exam, Cervix is 4 cm dilated, 50%, posterior and head is very high at - 4, discussed the findings, not in active labor, improved symptoms, discussed pain management options including IV Tylenol versus IV Stadol, Discussed ambulation and observation for few more hours, Patient decided to get IV Tylenol and then ambulate later, Continue to monitor closely, All questions were answered. Lab Results 09/16/25 09/17/25 Range/Units 23:12 03:50 WBC 6.55 (4.8-10.8) K/ul RBC 3.56 L (4.20-5.40) M/uL Hgb 10.1 L (12.0-16.0) g/dL Hct 32.0 L (37.0-47.0) % MCV 89.9 (80.0-100.0) fL MCH 28.4 (25.0-34.0) pg MCHC 31.6 L (32.0-36.0) g/dL RDW Std Deviation 45.2 (36.4-46.3) fL RDW Coeff of Eliezer 14.0 (11.5-14.5) % Plt Count 279 (130-400) K/uL MPV 9.0 L (9.4-12.4) fL Sodium 135 L (136-145) mmol/L Potassium 4.1 (3.5-5.1) mmol/L Chloride 105 (98-107) mmol/L Carbon Dioxide 23 (21-32) mmol/L Anion Gap 7 (3-11) BUN 7 (6-23) mg/dl Creatinine 0.65 (0.6-1.2) mg/dl Est Cr Clr Drug Dosing 135.0 ml/min eGFR 114.78 BUN/Creatinine Ratio 10.8 (10-20) Glucose 80 (70-99(Fasting)) mg/dl Calcium 8.9 (8.6-10.3) mg/dl Total Bilirubin 0.9 (0.2-1.0) mg/dl AST 17 (13-39) U/L ALT 10 (7-52) U/L Alkaline Phosphatase 119 H (34-104) U/L Total Protein 7.4 (6.0-8.3) gm/dl Albumin 3.5 (3.4-5.0) gm/dl Globulin 3.9 (2.5-4.0) gm/dl Albumin/Globulin Ratio 0.9 (0.9-2) Urine Color Dark Yellow Urine Appearance Clear (Clear) Urine pH 6.5 (4.5-7.5) Ur Specific [place] 1.024 (1.000-1.030) Urine Protein Trace H (Negative) Urine Glucose (UA) Negative (Negative) Urine Ketones 1+ H (Negative) Urine Blood Negative (Negative) Urine Nitrite Negative (Negative) Urine Bilirubin Negative (Negative) Urine Urobilinogen Negative (Negative) Ur Leukocyte Esterase Trace H (Negative) Urine WBC (Auto) 0-5 (0-5) /hpf Urine RBC (Auto) 3-5 H (0-2) /hpf U Hyaline Cast (Auto) 0-2 (0-2) /lpf U Epithel Cells (Auto) 0-2 (0-2) /hpf Urine Bacteria (Auto) None Seen (None Seen) Treponema pallidum Ab Negative (Negative) Results & Data Vital Signs (Past 12 Hours) Vital Signs Temp Pulse Resp BP Pulse Ox 09/17/25 00:16 82 114/56 L 09/17/25 00:07 18 09/17/25 00:07 36.5 C 18 09/16/25 22:50 100 09/16/25 22:50 92 H 09/16/25 22:45 100 09/16/25 22:45 100 H 09/16/25 22:40 100 09/16/25 22:40 95 H 09/16/25 22:35 99 09/16/25 22:35 94 H 09/16/25 22:30 98 09/16/25 22:30 92 H 09/16/25 22:30 123/76 09/16/25 21:58 37 C 97 H 18 131/75 09/16/25 21:43 97 H 131/75 09/16/25 21:40 18 09/16/25 21:40 37.0 C 18
[2025-09-17] MEDS: LACTATED RINGER'S 1,000 ML IV ONE (05:30)
[2025-09-17 07:02] VITALS: BP 127/68; PULSE 86
[2025-09-17 07:30] VITALS: TEMP 98.6
--- NOTE | 2025-09-17 09:09 | Labor Progress Brief Note ---
Date of Service September 17, 2025 Subjective Reason For Note: Routine Evaluation patient was re-evaluated for labor. She is not having any regular contractions. feeling comfortable. Assessment & Plan Admission and Anticipated Discharge Date Admission Date: September 16, 2025 Physical Exam Genitourinary: Manual OB Exam: + cervical dilation 3 cm, + cervical effacement 50% and + station high OB Exam Monitor Tracing: + external FHT monitor used, + external uterine monitor used, + category I and + normal FHT variability baby very high. cervix posterior. she has not made any cervical change and is not in labor at this time. will discharge home with f/u if in labor. Results & Data Vital Signs (Past 12 Hours) Vital Signs Temp Pulse Resp BP Pulse Ox 09/17/25 08:30 18 09/17/25 08:30 18 09/17/25 08:00 18 09/17/25 08:00 18 09/17/25 07:30 18 09/17/25 07:30 18 09/17/25 07:01 37.0 C 86 18 127/68 09/17/25 00:16 82 114/56 L 09/17/25 00:07 18 09/17/25 00:07 36.5 C 18 09/16/25 22:50 100 09/16/25 22:50 92 H 09/16/25 22:45 100 09/16/25 22:45 100 H 09/16/25 22:40 100 09/16/25 22:40 95 H 09/16/25 22:35 99 09/16/25 22:35 94 H 09/16/25 22:30 98 09/16/25 22:30 92 H 09/16/25 22:30 123/76 09/16/25 21:58 37 C 97 H 18 131/75 09/16/25 21:43 97 H 131/75 09/16/25 21:40 18 09/16/25 21:40 37.0 C 18
--- NOTE | 2025-09-25 09:42 | Discharge Summary ---
Date of Service September 25, 2025 Admission HPI Per Admitting Provider Patient is a 40-year-old -0-0-2 at 38 weeks who has been feeling contractions since this morning, they were irregular until tonight when they become more regular and painful. She rates the pain 8 out of 10. She denies leakage of fluid or vaginal bleeding. She reports good movements. She also has had dizziness with headache this morning, when she took Tylenol and hydrate herself and slept and woke up and she was fine in the afternoon. She states headache started again with the contractions tonight it is better than this morning but she can still feel it. She feels dizzy if she gets up from bed quickly and then it gets better. She is able to walk up to the bathroom and come back without dizziness. She denies chest pain, shortness of breath, fever or chills, change in her vision, epigastric or right upper quadrant pain. She reports good movements. Her has been uncomplicated except AMA. GBS negative. Discharge Data Consultations 09/16/25 22:49 Consult Anesthesiology Stat Procedures Performed [facility] Hospital Course (1) AMA (advanced maternal age) primigravida 35+: (2) 40 weeks gestation of :
== END 2025-09-17 09:15 | disposition home or self-care (01) | DRG 833 ==
LOC: OPB 21:35 → 4S1 21:39 → INTOOBSV 22:49
DX: O09.513 Supervision of elderly primigravida, third trimester; Z3A.38 38 weeks gestation of pregnancy; O47.1 False labor at or after 37 completed weeks of gestation; R51.9 Headache, unspecified; O26.893 Other specified pregnancy related conditions, third trimester

== ENCOUNTER 2025-09-21 17:01 | Inpatient (IN) ==
[2025-09-21 17:33] VITALS: RESP 18
[2025-09-21] MEDS ORDERED: BUTORPHANOL TARTRATE 1 MG/ML VIAL IV PRN (18:09)
[2025-09-21] MEDS ORDERED: ONDANSETRON INJ 2 MG/ML 2 ML VIAL IV PRN (18:09)
[2025-09-21] MEDS ORDERED: CALCIUM CARBONATE 500 MG CHEWABLE TAB PO PRN ×2 (18:09→21:20)
--- NOTE | 2025-09-21 18:18 | History & Physical Report ---
Date of Service September 21, 2025 Assessment & Plan (1) Uterine contractions at greater than 20 weeks of gestation: (2) with 39 completed weeks gestation: (3) Dysuria: (4) Vaginal pain: Plan: 40 years old -0-0-2 at 39 weeks of gestation presenting today with vaginal/ pubic pain and pelvic discomfort, dysuria, Cervix has no change per my exam since September 16, irregular contractions, heart rate reassuring, Plan to observe, IV fluid hydration pain and medication and reevaluate, Unable to offer her induction / augmentation of labor at this point due to other emergencies going on in labor and delivery with shortage of nurses, all questions were answered. History of Present Illness Primary Care Provider: NO PCP Patient is a 40-year-old -0-0-2 at 39 weeks of gestation who has been feeling vaginal pain, pelvic discomfort since last night, unable to sleep. She came to office in wheelchair reported that she cannot walk due to pain in the vagina and pubic bone area. This has been off and on, able to walk in between these pain episodes. States starting urination is also painful, increased frequency but amount of urine is small and the color is orange. She is not sure she is having contractions but denies leakage of fluid or vaginal bleeding. She reports good movements. She was here last week with contractions and dehydration, recovered after IV fluids hydration and her cervix was unchanged and she was sent home by Dr. Huizar. when she came to L&D she felt warm on her face and her temperature was 37.6, this was the only time today. GBS is negative. Allergies Allergy/AdvReac Type Severity Reaction Status Date / Time No Known Allergies Allergy Verified 09/21/25 17:09 Home Medications Medication Instructions Recorded Confirmed Type vit no.95-ferrous 1 tab PO DAILY 02/20/22 09/21/25 History fumarate 28 mg-folic acid 800 mcg tablet () Patient History Medical History Anemia had iron infusions (spontaneous vaginal delivery) Third trimester Surgical History History of appendectomy Family History Uncle Diabetes Social History Smoking Status: Never smoker Hx Alcohol Use: No Hx Substance Use: No Preferred Language: [place] Citizen Communication Ability: Effective Visual Impairment: No Limitations 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 Beliefs That Will Affect Care: None marital status: marital status details: Basil Diamond ([place]) [phone] Current Living Situation: Spouse and Family 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 Feels Safe at Home: Yes Safety Concerns: Feels Safe At This Time Diet: regular Assistive Devices: None OB History 2 full-term 's, no complications Review of Systems as per Subjective / HPI and + chills Physical Exam Constitutional: WD/WN, vitals as above well developed, well nourished and + acute distress Gastrointestinal (Abdomen): normal bowel sounds, soft, nontender, no hepatosplenomegaly Genitourinary: normal external appearance OB Exam Abdomen: + vertex Manual OB Exam: + cervical dilation 4 cm, + cervical effacement 50% and + station -2 OB Exam Monitor Tracing: + external uterine monitor used and + category I Results & Data Vital Signs (Past 12 Hours) Vital Signs Temp Pulse Resp BP 09/21/25 17:19 97 H 122/78 09/21/25 17:06 37.6 C H 18
[2025-09-21] MEDS: LACTATED RINGER'S 1,000 ML IV PRN (18:28)
[2025-09-21 18:45] LABS: Hematocrit (blood only) 28.9 % (37.0-47.0); Hemoglobin 9.1 g/dL (12.0-16.0); Immature Granulocytes # (auto) 0.02 K/uL (0.01-0.20); Immature Granulocytes % (auto) 0.3 %; Mean Corpuscular Hemoglobin 28.2 pg (25.0-34.0); Mean Corpuscular Volume 89.5 fL (80.0-100.0); Platelet Count 264 K/uL (130-400); RDW Standard Deviation 45.1 fL (36.4-46.3); Red Blood Count 3.23 M/uL (4.20-5.40); White Blood Count 5.83 K/ul (4.8-10.8)
[2025-09-21 18:58] LABS: Appearance Urine Cloudy (Clear); Bacteria Urine Automated None Seen (None Seen); Glucose Urine UA Negative (Negative); WBC Urine Automated 0-5 /hpf (0-5)
[2025-09-21 19:03] LABS: Alanine Aminotransferase 9.0 U/L (7-52); Albumin Globulin Ratio 0.9 (0.9-2); Albumin Level 3.1 gm/dl (3.4-5.0); Alkaline Phosphatase 115.0 U/L (34-104); Anion Gap 7.0 (3-11); Bilirubin,Total 0.8 mg/dl (0.2-1.0); Blood Urea Nitrogen 8.0 mg/dl (6-23); Calcium 8.3 mg/dl (8.6-10.3); Carbon Dioxide 22.0 mmol/L (21-32); Chloride 106.0 mmol/L (98-107); Creatinine Clr Calc Pharmacy 142.8 ml/min; Globulin 3.5 gm/dl (2.5-4.0); Glucose 95.0 mg/dl (70-99(Fasting)); Potassium 3.8 mmol/L (3.5-5.1); Sodium 135.0 mmol/L (136-145); Total Protein 6.6 gm/dl (6.0-8.3)
[2025-09-21 19:11] LABS: Protein Creatinine Ratio Urine 0.1 (0-0.2); Total Protein Urine Random 22.9 mg/dl (0-11.9)
[2025-09-21] MEDS: D5W AND LACTATED RINGERS 1,000 ML IV SCH (19:34)
[2025-09-21] MEDS ORDERED: SODIUM CHLORIDE 0.9% 100 ML IV PRN (19:56)
[2025-09-21] MEDS ORDERED: LIDOCAINE 1% LOCAL 20 ML VIAL INFIL PRN (21:20)
--- NOTE | 2025-09-21 21:24 | Obstetrical Progress Note ---
Date of Service September 21, 2025 Assessment & Plan Admission and Anticipated Discharge Date Admission Date: September 21, 2025 Subjective Patient is reevaluated. She has been feeling sharp pelvic pains off-and-on especially when she gets up to use the bathroom. She does not think she can sleep. Vital signs stable afebrile, heart rate category 1, Contractions are still irregular, Cervix is unchanged, Discussed the findings and offered her induction of labor tonight versus expectant management and coming in active labor. Patient desires induction of labor tonight. Discussed what to expect and all questions were answered, Reviewed her medical history and surgeries in details. AMA, anemia, history of appendectomy at age 19, GBS negative, no history of STDs, no history of chlamydia, gonorrhea, herpes. Plan to admit, monitor, augment contractions with oxytocin, epidural for pain, anticipate . Lab Results 09/21/25 09/21/25 09/21/25 Range/Units 18:15 18:33 20:46 WBC 5.83 (4.8-10.8) K/ul RBC 3.23 L (4.20-5.40) M/uL Hgb 9.1 L (12.0-16.0) g/dL Hct 28.9 L (37.0-47.0) % MCV 89.5 (80.0-100.0) fL MCH 28.2 (25.0-34.0) pg MCHC 31.5 L (32.0-36.0) g/dL RDW Std Deviation 45.1 (36.4-46.3) fL RDW Coeff of Eliezer 13.9 (11.5-14.5) % Plt Count 264 (130-400) K/uL MPV 9.1 L (9.4-12.4) fL Immature Gran % (Auto) 0.3 % Neut % (Auto) 62.6 % Lymph % (Auto) 26.8 % [place] % (Auto) 9.8 % Eos % (Auto) 0.3 % Baso % (Auto) 0.2 % Neut # (Auto) 3.65 (1.40-6.50) K/uL Lymph # (Auto) 1.56 (1.20-3.40) K/uL [place] # (Auto) 0.57 (0.11-0.59) K/uL Eos # (Auto) 0.02 (0.00-0.50) K/uL Baso # (Auto) 0.01 (0.00-0.20) K/uL Immature Gran # (Auto) 0.02 (0.01-0.20) K/uL Sodium 135 L (136-145) mmol/L Potassium 3.8 (3.5-5.1) mmol/L Chloride 106 (98-107) mmol/L Carbon Dioxide 22 (21-32) mmol/L Anion Gap 7 (3-11) BUN 8 (6-23) mg/dl Creatinine 0.61 (0.6-1.2) mg/dl Est Cr Clr Drug Dosing 142.8 ml/min eGFR 116.56 BUN/Creatinine Ratio 13.1 (10-20) Glucose 95 (70-99(Fasting)) mg/dl Calcium 8.3 L (8.6-10.3) mg/dl Total Bilirubin 0.8 (0.2-1.0) mg/dl AST 16 (13-39) U/L ALT 9 (7-52) U/L Alkaline Phosphatase 115 H (34-104) U/L Total Protein 6.6 (6.0-8.3) gm/dl Albumin 3.1 L (3.4-5.0) gm/dl Globulin 3.5 (2.5-4.0) gm/dl Albumin/Globulin Ratio 0.9 (0.9-2) Urine Color Dark Yellow Urine Appearance Cloudy A (Clear) Urine pH 6.5 (4.5-7.5) Ur Specific [place] 1.030 (1.000-1.030) Urine Protein Trace H (Negative) Urine Glucose (UA) Negative (Negative) Urine Ketones Trace H (Negative) Urine Blood Negative (Negative) Urine Nitrite Negative (Negative) Urine Bilirubin 1+ H (Negative) Urine Urobilinogen Negative (Negative) Ur Leukocyte Esterase 1+ H (Negative) Urine WBC (Auto) 0-5 (0-5) /hpf Urine RBC (Auto) 3-5 H (0-2) /hpf U Hyaline Cast (Auto) 3-5 H (0-2) /lpf U Epithel Cells (Auto) 3-5 H (0-2) /hpf Urine Bacteria (Auto) None Seen (None Seen) Ur Random Creatinine 229.8 mg/dl U Random Total Protein 22.9 H (0-11.9) mg/dl Protein/Creatinin Ratio 0.1 (0-0.2) Crossmatch See Detail Results & Data Vital Signs (Past 12 Hours) Vital Signs Temp Pulse Resp BP 09/21/25 19:35 36.8 C 18 09/21/25 19:35 92 H 132/70 09/21/25 17:19 97 H 122/78 09/21/25 17:06 37.6 C H 18
[2025-09-21] MEDS: OXYTOCIN 30 UNITS/NSS 30 UNITS/500 ML BAG IV PRN (21:56)
[2025-09-22] MEDS ORDERED: SODIUM CHLORIDE 0.9% PF INJ 10 ML VIAL ONE (04:06)
--- NOTE | 2025-09-22 04:12 | Anesthesiology Consultation ---
Date of Service September 22, 2025 Assessment & Plan (1) Encounter for pre-operative examination: Chart Review Chart Review: Acceptable Risk for Labor Epidural History Height/Weight Height: 5 ft 7 in Weight: 90.265 kg Allergies Allergy/AdvReac Type Severity Reaction Status Date / Time No Known Allergies Allergy Verified 09/21/25 17:09 Medications Home Medications Medication Instructions Recorded Confirmed Last Taken vit no.95-ferrous 1 tab PO DAILY 02/20/22 09/21/25 04/05/23 fumarate 28 mg-folic acid 800 mcg tablet () Active Medications Generic Name Dose Route Start Last Admin Trade Name Freq PRN Reason Stop Dose Admin Cephalexin HCl 500 mg 09/21/25 22:00 09/21/25 22:30 Cephalexin 500 Mg Cap PO 09/26/25 21:59 500 mg Q12H MICHAEL Administration Protocol Dextrose/Lactated Ringer's 1,000 mls @ 150 mls/hr 09/21/25 18:15 09/21/25 21:40 D5w And Lactated Ringers IV 09/24/25 18:14 150 mls/hr .Q6H40M MICHAEL Infusion Lactated Ringer's 1,000 mls @ 999 mls/hr 09/21/25 18:09 09/22/25 00:00 Lr IV 09/24/25 18:08 150 mls/hr .Q1H1M PRN Administration L&D Protocol Protocol Oxytocin 30 units in 500 mls @ 20 mls/hr 09/21/25 21:20 09/22/25 03:00 Pitocin 30 Units/Nss IV 09/23/25 21:19 1.2 units/hr .Q24H PRN 20 mls/hr Labor Induction/Augmentation Titration Protocol 1.2 UNITS/HR Past Medical History Medical History Anemia had iron infusions (spontaneous vaginal delivery) Third trimester Past Family History Family History Uncle Diabetes Past Surgical History Surgical History History of appendectomy Social History Smoking Status: Never smoker Hx Alcohol Use: No Hx Substance Use: No substance use type: does not use Physical Exam Vital Signs Last Vital Signs Temp 36.9 C 09/22/25 01:00 Pulse 75 09/22/25 03:59 Resp 18 09/22/25 01:00 BP 132/72 09/22/25 03:59 Testing Laboratory Results 09/21/25 18:33 09/21/25 18:33 Urine Color Dark Yellow 09/21/25 18:15 Urine Appearance Cloudy (Clear) A 09/21/25 18:15 Urine pH 6.5 (4.5-7.5) 09/21/25 18:15 Ur Specific [place] 1.030 (1.000-1.030) 09/21/25 18:15 Urine Protein Trace (Negative) H 09/21/25 18:15 Urine Glucose (UA) Negative (Negative) 09/21/25 18:15 Urine Ketones Trace (Negative) H 09/21/25 18:15 Urine Nitrite Negative (Negative) 09/21/25 18:15 Ur Leukocyte Esterase 1+ (Negative) H 09/21/25 18:15 Urine WBC (Auto) 0-5 /hpf (0-5) 09/21/25 18:15 Urine RBC (Auto) 3-5 /hpf (0-2) H 09/21/25 18:15 U Hyaline Cast (Auto) 3-5 /lpf (0-2) H 09/21/25 18:15 U Epithel Cells (Auto) 3-5 /hpf (0-2) H 09/21/25 18:15 Urine Bacteria (Auto) None Seen (None Seen) 09/21/25 18:15 Blood Type A Positive 09/21/25 20:46 Antibody Screen NEGATIVE 09/21/25 20:46
[2025-09-22] MEDS: LACTATED RINGER'S 1,000 ML IV PRN (04:32)
[2025-09-22] MEDS: BUPIVACAINE 0.25% PF 30 ML VIAL ONE (04:43)
[2025-09-22] MEDS: LIDOCAINE 2%/EPINEPHRINE 1:200,000 20 ML PF ONE (04:43)
[2025-09-22] MEDS: fentANYL 2 MCG/ML BUPIVacaine 0.125%-NSS 100ML BAG ONE (04:44)
[2025-09-22] MEDS ORDERED: NALOXONE HCL 0.4 MG/1 ML VIAL/CARP IV PRN (04:48)
[2025-09-22] MEDS ORDERED: fentANYL 2 MCG/ML BUPIVacaine 0.125%-NSS 100ML BAG EPI PRN (04:48)
[2025-09-22] MEDS ORDERED: BUPIVACAINE 0.25% PF 30 ML VIAL EPI STA (04:48)
[2025-09-22] MEDS ORDERED: ONDANSETRON INJ 2 MG/ML 2 ML VIAL IV PRN (04:48)
[2025-09-22] MEDS ORDERED: LIDOCAINE 2% MPF LOCAL 5 ML VIAL EPI PRN (04:48)
[2025-09-22] MEDS ORDERED: ROPIVACAINE 0.5% PF 5 MG/ML 20 ML VIAL EPI PRN (04:48)
[2025-09-22] MEDS ORDERED: BUPIVACAINE 0.25% PF 30 ML VIAL EPI PRN (04:48)
[2025-09-22] MEDS ORDERED: SODIUM CHLORIDE 0.9% PF INJ 10 ML VIAL EPI PRN (04:48)
[2025-09-22] MEDS ORDERED: SODIUM CHLORIDE 0.9% PF INJ 10 ML VIAL EPI STA (04:48)
[2025-09-22] MEDS ORDERED: NALOXONE HCL 1 MG in SODIUM CHLORIDE 0.9% 1,000 ML IV PRN (04:48)
[2025-09-22] MEDS ORDERED: LIDOCAINE 2%/EPINEPHRINE 1:200,000 20 ML PF EPI STA (04:48)
--- NOTE | 2025-09-22 05:19 | Obstetrical Progress Note ---
Date of Service September 22, 2025 Assessment & Plan Admission and Anticipated Discharge Date Admission Date: September 21, 2025 Subjective Patient has received epidural and comfortable now Pitocin has been at 20 milliunits/min. heart rate has been category 1 toco is registering contractions every 2 to 4 minutes, Vaginal exam, cervix is 5 cm, 60% effaced, head is at -2 station, AROM, abundant clear fluid was obtained, Continue to monitor closely, Anticipate . Results & Data Vital Signs (Past 12 Hours) Vital Signs Temp Pulse Resp BP Pulse Ox 09/22/25 05:17 92 H 100 09/22/25 05:12 89 100 09/22/25 05:11 83 131/73 09/22/25 05:07 80 100 09/22/25 05:02 90 100 09/22/25 04:57 85 100 09/22/25 04:54 96 H 132/70 09/22/25 04:52 18 09/22/25 04:52 37.2 C 94 H 18 127/66 100 09/22/25 04:50 97 H 127/66 09/22/25 04:48 103 H 130/70 09/22/25 04:47 94 H 100 09/22/25 04:46 83 132/71 09/22/25 04:42 83 100 09/22/25 04:41 81 131/71 09/22/25 04:37 97 H 100 09/22/25 04:32 114 H 100 09/22/25 04:27 99 09/22/25 04:27 93 H 09/22/25 04:27 88 93 09/22/25 03:59 75 132/72 09/22/25 02:58 91 H 117/63 09/22/25 01:59 82 117/66 09/22/25 01:00 18 09/22/25 01:00 36.9 C 18 09/22/25 00:59 81 119/66 09/21/25 23:58 87 117/62 09/21/25 23:02 18 09/21/25 23:02 36.8 C 18 09/21/25 23:01 80 131/73 09/21/25 21:57 85 128/69 09/21/25 19:35 36.8 C 18 09/21/25 19:35 92 H 132/70 09/21/25 17:19 97 H 122/78
[2025-09-22] MEDS ORDERED: NURSING L&D Epidural Breakthrough Pain Update ONE (07:14)
[2025-09-22] MEDS ORDERED: LIDOCAINE 2%/EPINEPHRINE 1:200,000 20 ML PF ONE (07:41)
--- NOTE | 2025-09-22 07:57 | Anesthesia Procedure Note ---
Date of Service September 22, 2025 Anesthesia Epidural Re-Dose Vital Signs Temp Pulse Resp BP Pulse Ox 37.1 C 95 H 18 147/79 H 98 09/22/25 07:10 09/22/25 07:54 09/22/25 05:15 09/22/25 07:54 09/22/25 07:53 Notes Pain Intensity: 0 Dilatation (cm): 9.0 Effacement (%): 90 Called by nursing to evaluate epidural as the patient is having increased pain. The epidural was re-dosed with the following medications (all medications via epidural route) after negative aspiration of the epidural catheter for CSF/HEME. 8ml of 2% Lidocaine. divided doses. After Epidural Re-Dose Mental Status: alert / awake / arousable Pain: improving with treatment Airway Patency, RR, SpO2: stable & adequate BP & HR: stable & adequate
[2025-09-22] MEDS ORDERED: OXYTOCIN 30 UNITS/NSS 30 UNITS/500 ML BAG IV PRN (09:47)
[2025-09-22] MEDS ORDERED: HYDROCORTISONE ACETATE 25 MG SUPP PR PRN (09:47)
[2025-09-22] MEDS ORDERED: DIPHTHER/TETAN/PERTUS Vaccine (Tdap, Adol/Adult) 0.5mL IM ONE (09:47)
[2025-09-22] MEDS ORDERED: ACETAMINOPHEN 325 MG TAB PO PRN (09:47)
--- NOTE | 2025-09-22 09:50 | Delivery Summary ---
Vaginal Delivery Summary Date of Service September 22, 2025 Vaginal Delivery Summary live female FANTA with mild shoulder dystocia delivered intact. Cord clamped and cut and baby brought to warmer. Apgars 6/8 weight pending. Cord segment obtained for blood gas. Cord blood obtained and placenta delivered spontaneously and intact. No tears. QBL 75 ml. Final sponge and instrument count are correct. Mom and baby stable.
[2025-09-22] MEDS: OXYTOCIN 30 UNITS/NSS 30 UNITS/500 ML BAG IV PRN (09:58)
[2025-09-22 10:06] LABS: Base Excess Cord Arterial Bld -6.5 mEq/L (-9-1.8); CO2 Cord Arterial Blood 70 mmHg (39.1-73.5); HCO3 Cord Arterial Blood 24 mmol/L (19.7-28.5); Oxygen Sat Cord Arterial Blood < 60.0 % (<60); PO2 Cord Arterial Blood 25 mmHg (4.1-31.7); pH Cord Arterial Blood 7.14 (7.1-7.38)
[2025-09-22 10:08] LABS: Base Excess Cord Venous Blood -1.5 mEq/L (-7.7-1.9); Cord Venous Blood PO2 35 mmHg (14.1-43.3); O2 Saturation Cord Venous Bld 70.9 % (<68)
[2025-09-22] MEDS: IBUPROFEN 600 MG TAB PO PRN (10:39)
--- NOTE | 2025-09-22 10:51 | Anesthesia Procedure Note ---
Date of Service September 22, 2025 Anesthesia Post Epidural Note Vital Signs Vital Signs: Temp Pulse Resp BP Pulse Ox 36.6 C 90 18 128/63 73 L 09/22/25 09:17 09/22/25 10:35 09/22/25 05:15 09/22/25 10:35 09/22/25 09:23 Pain Intensity Bilateral Abdomen: Pain Intensity: 3 Notes Mental Status: alert / awake / arousable and participated in evaluation Patient Amnestic to Procedure: No Nausea / Vomiting: adequately controlled Pain: adequately controlled Airway Patency, RR, SpO2: stable & adequate BP & HR: stable & adequate Hydration State: stable & adequate Neuraxial Anesthesia: was administered and sensory block is resolving Anesthetic Complications: no major complications apparent and Pt Satisfied with anesthetic care Epidural: Removed without complications and With tip intact
[2025-09-22] MEDS: ACETAMINOPHEN 500 MG TAB PO PRN (12:16)
[2025-09-22] MEDS: ACETAMINOPHEN 325 MG TAB PO PRN (12:20)
[2025-09-22] MEDS: BENZOCAINE 20% SPRY 85 APPLN/85 GM CAN EXT PRN (14:23)
[2025-09-22] MEDS: DOCUSATE SODIUM 100 MG CAP PO SCH (22:04)
[2025-09-23 03:45] VITALS: O2SAT 100
[2025-09-23 07:00] LABS: Hematocrit (blood only) 27.3 % (37.0-47.0); Hemoglobin 8.7 g/dL (12.0-16.0); Mean Corpuscular Hemoglobin 28.0 pg (25.0-34.0); Mean Corpuscular Volume 87.8 fL (80.0-100.0); Platelet Count 272 K/uL (130-400); RDW Standard Deviation 43.5 fL (36.4-46.3); Red Blood Count 3.11 M/uL (4.20-5.40); White Blood Count 9.83 K/ul (4.8-10.8)
[2025-09-23] MEDS ORDERED: NON-FORMULARY MEDICATION (Pnv No.95-Ferrous Fumarate-Fa [Prenatal] 28 mg iron- 800 mcg Tab PO SCH (09:00)
--- NOTE | 2025-09-23 09:10 | Obstetrical Progress Note ---
Date of Service September 23, 2025 Assessment & Plan Admission and Anticipated Discharge Date Admission Date: September 21, 2025 Subjective Patient is seen and examined. She feels well, no complaints. Ambulating without dizziness Voiding without difficulty Tolerating regular diet with out N&V Bleeding is minimal No fever/ chills/ CP/ SOB/ N&V/ Leg pain Breast feeding without problems Vital Signs Temp Pulse Resp BP Pulse Ox O2 Del Method 09/23/25 03:35 36.8 C 72 18 129/78 100 Room Air 09/22/25 23:51 36.7 C 86 18 115/70 95 Room Air Lab Results 09/21/25 09/21/25 09/21/25 Range/Units 18:15 18:33 20:46 WBC 5.83 (4.8-10.8) K/ul RBC 3.23 L (4.20-5.40) M/uL Hgb 9.1 L (12.0-16.0) g/dL Hct 28.9 L (37.0-47.0) % MCV 89.5 (80.0-100.0) fL MCH 28.2 (25.0-34.0) pg MCHC 31.5 L (32.0-36.0) g/dL RDW Std Deviation 45.1 (36.4-46.3) fL RDW Coeff of Eliezer 13.9 (11.5-14.5) % Plt Count 264 (130-400) K/uL MPV 9.1 L (9.4-12.4) fL Immature Gran % (Auto) 0.3 % Neut % (Auto) 62.6 % Lymph % (Auto) 26.8 % [place] % (Auto) 9.8 % Eos % (Auto) 0.3 % Baso % (Auto) 0.2 % Neut # (Auto) 3.65 (1.40-6.50) K/uL Lymph # (Auto) 1.56 (1.20-3.40) K/uL [place] # (Auto) 0.57 (0.11-0.59) K/uL Eos # (Auto) 0.02 (0.00-0.50) K/uL Baso # (Auto) 0.01 (0.00-0.20) K/uL Immature Gran # (Auto) 0.02 (0.01-0.20) K/uL Cord ABG pH (7.1-7.38) Cord ABG pCO2 (39.1-73.5) mmHg Cord ABG pO2 (4.1-31.7) mmHg Cord ABG HCO3 (19.7-28.5) mmol/L Cord ABG Base Excess (-9-1.8) mEq/L Cord ABG O2 Sat (<60) % Cord VBG pH (7.20-7.44) Cord VBG pCO2 (30.4-57.2) mmHg Cord VBG pO2 (14.1-43.3) mmHg Cord VBG HCO3 (18.4-26.8) mmol/L Cord VBG Base Excess (-7.7-1.9) mEq/L Cord VBG O2 Sat (<68) % Blood Gas Comments Sodium 135 L (136-145) mmol/L Potassium 3.8 (3.5-5.1) mmol/L Chloride 106 (98-107) mmol/L Carbon Dioxide 22 (21-32) mmol/L Anion Gap 7 (3-11) BUN 8 (6-23) mg/dl Creatinine 0.61 (0.6-1.2) mg/dl Est Cr Clr Drug Dosing 142.8 ml/min eGFR 116.56 BUN/Creatinine Ratio 13.1 (10-20) Glucose 95 (70-99(Fasting)) mg/dl Calcium 8.3 L (8.6-10.3) mg/dl Total Bilirubin 0.8 (0.2-1.0) mg/dl AST 16 (13-39) U/L ALT 9 (7-52) U/L Alkaline Phosphatase 115 H (34-104) U/L Total Protein 6.6 (6.0-8.3) gm/dl Albumin 3.1 L (3.4-5.0) gm/dl Globulin 3.5 (2.5-4.0) gm/dl Albumin/Globulin Ratio 0.9 (0.9-2) Urine Color Dark Yellow Urine Appearance Cloudy A (Clear) Urine pH 6.5 (4.5-7.5) Ur Specific [place] 1.030 (1.000-1.030) Urine Protein Trace H (Negative) Urine Glucose (UA) Negative (Negative) Urine Ketones Trace H (Negative) Urine Blood Negative (Negative) Urine Nitrite Negative (Negative) Urine Bilirubin 1+ H (Negative) Urine Urobilinogen Negative (Negative) Ur Leukocyte Esterase 1+ H (Negative) Urine WBC (Auto) 0-5 (0-5) /hpf Urine RBC (Auto) 3-5 H (0-2) /hpf U Hyaline Cast (Auto) 3-5 H (0-2) /lpf U Epithel Cells (Auto) 3-5 H (0-2) /hpf Urine Bacteria (Auto) None Seen (None Seen) Ur Random Creatinine 229.8 mg/dl U Random Total Protein 22.9 H (0-11.9) mg/dl Protein/Creatinin Ratio 0.1 (0-0.2) Treponema pallidum Ab (Negative) Blood Type A Positive Antibody Screen NEGATIVE Crossmatch See Detail 09/21/25 09/22/25 09/22/25 Range/Units 20:47 Unknown Unknown WBC (4.8-10.8) K/ul RBC (4.20-5.40) M/uL Hgb (12.0-16.0) g/dL Hct (37.0-47.0) % MCV (80.0-100.0) fL MCH (25.0-34.0) pg MCHC (32.0-36.0) g/dL RDW Std Deviation (36.4-46.3) fL RDW Coeff of Eliezer (11.5-14.5) % Plt Count (130-400) K/uL MPV (9.4-12.4) fL Immature Gran % (Auto) % Neut % (Auto) % Lymph % (Auto) % [place] % (Auto) % Eos % (Auto) % Baso % (Auto) % Neut # (Auto) (1.40-6.50) K/uL Lymph # (Auto) (1.20-3.40) K/uL [place] # (Auto) (0.11-0.59) K/uL Eos # (Auto) (0.00-0.50) K/uL Baso # (Auto) (0.00-0.20) K/uL Immature Gran # (Auto) (0.01-0.20) K/uL Cord ABG pH 7.14 (7.1-7.38) Cord ABG pCO2 70 (39.1-73.5) mmHg Cord ABG pO2 25 (4.1-31.7) mmHg Cord ABG HCO3 24 (19.7-28.5) mmol/L Cord ABG Base Excess -6.5 (-9-1.8) mEq/L Cord ABG O2 Sat < 60.0 (<60) % Cord VBG pH 7.37 (7.20-7.44) Cord VBG pCO2 41 (30.4-57.2) mmHg Cord VBG pO2 35 (14.1-43.3) mmHg Cord VBG HCO3 24 (18.4-26.8) mmol/L Cord VBG Base Excess -1.5 (-7.7-1.9) mEq/L Cord VBG O2 Sat 70.9 H (<68) % Blood Gas Comments WILCOX WILCOX Sodium (136-145) mmol/L Potassium (3.5-5.1) mmol/L Chloride (98-107) mmol/L Carbon Dioxide (21-32) mmol/L Anion Gap (3-11) BUN (6-23) mg/dl Creatinine (0.6-1.2) mg/dl Est Cr Clr Drug Dosing ml/min eGFR BUN/Creatinine Ratio (10-20) Glucose (70-99(Fasting)) mg/dl Calcium (8.6-10.3) mg/dl Total Bilirubin (0.2-1.0) mg/dl AST (13-39) U/L ALT (7-52) U/L Alkaline Phosphatase (34-104) U/L Total Protein (6.0-8.3) gm/dl Albumin (3.4-5.0) gm/dl Globulin (2.5-4.0) gm/dl Albumin/Globulin Ratio (0.9-2) Urine Color Urine Appearance (Clear) Urine pH (4.5-7.5) Ur Specific [place] (1.000-1.030) Urine Protein (Negative) Urine Glucose (UA) (Negative) Urine Ketones (Negative) Urine Blood (Negative) Urine Nitrite (Negative) Urine Bilirubin (Negative) Urine Urobilinogen (Negative) Ur Leukocyte Esterase (Negative) Urine WBC (Auto) (0-5) /hpf Urine RBC (Auto) (0-2) /hpf U Hyaline Cast (Auto) (0-2) /lpf U Epithel Cells (Auto) (0-2) /hpf Urine Bacteria (Auto) (None Seen) Ur Random Creatinine mg/dl U Random Total Protein (0-11.9) mg/dl Protein/Creatinin Ratio (0-0.2) Treponema pallidum Ab Negative (Negative) Blood Type Antibody Screen Crossmatch 09/23/25 Range/Units 06:31 WBC 9.83 (4.8-10.8) K/ul RBC 3.11 L (4.20-5.40) M/uL Hgb 8.7 L (12.0-16.0) g/dL Hct 27.3 L (37.0-47.0) % MCV 87.8 (80.0-100.0) fL MCH 28.0 (25.0-34.0) pg MCHC 31.9 L (32.0-36.0) g/dL RDW Std Deviation 43.5 (36.4-46.3) fL RDW Coeff of Eliezer 13.6 (11.5-14.5) % Plt Count 272 (130-400) K/uL MPV 9.4 (9.4-12.4) fL Immature Gran % (Auto) % Neut % (Auto) % Lymph % (Auto) % [place] % (Auto) % Eos % (Auto) % Baso % (Auto) % Neut # (Auto) (1.40-6.50) K/uL Lymph # (Auto) (1.20-3.40) K/uL [place] # (Auto) (0.11-0.59) K/uL Eos # (Auto) (0.00-0.50) K/uL Baso # (Auto) (0.00-0.20) K/uL Immature Gran # (Auto) (0.01-0.20) K/uL Cord ABG pH (7.1-7.38) Cord ABG pCO2 (39.1-73.5) mmHg Cord ABG pO2 (4.1-31.7) mmHg Cord ABG HCO3 (19.7-28.5) mmol/L Cord ABG Base Excess (-9-1.8) mEq/L Cord ABG O2 Sat (<60) % Cord VBG pH (7.20-7.44) Cord VBG pCO2 (30.4-57.2) mmHg Cord VBG pO2 (14.1-43.3) mmHg Cord VBG HCO3 (18.4-26.8) mmol/L Cord VBG Base Excess (-7.7-1.9) mEq/L Cord VBG O2 Sat (<68) % Blood Gas Comments Sodium (136-145) mmol/L Potassium (3.5-5.1) mmol/L Chloride (98-107) mmol/L Carbon Dioxide (21-32) mmol/L Anion Gap (3-11) BUN (6-23) mg/dl Creatinine (0.6-1.2) mg/dl Est Cr Clr Drug Dosing ml/min eGFR BUN/Creatinine Ratio (10-20) Glucose (70-99(Fasting)) mg/dl Calcium (8.6-10.3) mg/dl Total Bilirubin (0.2-1.0) mg/dl AST (13-39) U/L ALT (7-52) U/L Alkaline Phosphatase (34-104) U/L Total Protein (6.0-8.3) gm/dl Albumin (3.4-5.0) gm/dl Globulin (2.5-4.0) gm/dl Albumin/Globulin Ratio (0.9-2) Urine Color Urine Appearance (Clear) Urine pH (4.5-7.5) Ur Specific [place] (1.000-1.030) Urine Protein (Negative) Urine Glucose (UA) (Negative) Urine Ketones (Negative) Urine Blood (Negative) Urine Nitrite (Negative) Urine Bilirubin (Negative) Urine Urobilinogen (Negative) Ur Leukocyte Esterase (Negative) Urine WBC (Auto) (0-5) /hpf Urine RBC (Auto) (0-2) /hpf U Hyaline Cast (Auto) (0-2) /lpf U Epithel Cells (Auto) (0-2) /hpf Urine Bacteria (Auto) (None Seen) Ur Random Creatinine mg/dl U Random Total Protein (0-11.9) mg/dl Protein/Creatinin Ratio (0-0.2) Treponema pallidum Ab (Negative) Blood Type Antibody Screen Crossmatch PE: General: Alert, orientedx3, NAD Abd: soft, NT, fundus firm, below Umbilicus Perineum intact, Lochia rubra minimal Ext; NT, no edema AP: 40 yo s/p , ppd# 1 VSS Afebrile doing well Anemic, IV iron Continue routine care All questions were answered D/C home this afernoon Results & Data Vital Signs (Past 12 Hours) Vital Signs Temp Pulse Resp BP Pulse Ox O2 Del Method 09/23/25 03:35 36.8 C 72 18 129/78 100 Room Air 09/22/25 23:51 36.7 C 86 18 115/70 95 Room Air
[2025-09-23] MEDS: PRENATAL VITAMIN 1 TAB PO SCH (09:40)
[2025-09-23] MEDS: IRON SUCROSE 200 MG in SODIUM CHLORIDE 0.9% 100 ML IV ONE (09:41)
[2025-09-23] MEDS: FERROUS SULFATE 325 MG TAB PO SCH (09:41)
[2025-09-23 11:27] VITALS: BP 120/76; PULSE 96; TEMP 97.5
== END 2025-09-23 13:30 | disposition home or self-care (01) | DRG 807 ==
LOC: OPB 17:01 → 4S1 17:03 → 4E2 09-22 13:05